=== PATIENT | female | born 1930 | race Caucasian/White ===

== ENCOUNTER 2017-05-26 15:36 | Inpatient (IN) | payer OTHER, MEDICARE ==
--- OUTSIDE RECORDS SUMMARY | 2017-05-26 15:38 | XMS REPORT | Clinical Summary ---
:1930 Author Organization [facility] Address [address] [place] [address] Care Team Providers Name Role Phone Romero Zhu MD Primary Care Provider Allergies Active Allergy Reactions Severity Noted Date Comments Morphine Shortness Of Breath High 12/29/2015 Penicillins 12/29/2015 Current Medications Prescription Sig. Disp. Refills Start Date End Date Status oxybutynin Take 5 mg by Active (DITROPAN) 5 MG mouth 3 (three) tablet times a day. multivitamin Take 1 tablet by Active (THERAGRAN) tablet mouth daily. alendronate Take 70 mg by Active (FOSAMAX) 70 MG mouth every 7 tablet days. Take in the morning with a full glass of water, on an empty stomach, and do not take anything else by mouth or lie down for the next 30 min. docusate sodium Take 200 mg by Active (COLACE) 100 MG mouth nightly. capsule gemfibrozil (LOPID) Take 1 tablet 180 tablet 3 01/26/2016 Active 600 MG (600 mg total) tabletIndications: by mouth 2 (two) Essential times a day hypertension before meals. simvastatin (ZOCOR) Take 1 tablet 90 tablet 3 01/26/2016 Active 20 MG (20 mg total) by tabletIndications: mouth daily. Essential hypertension magnesium oxide Take 400 mg by Active (MAG-OX) 400 mg mouth daily. tablet aspirin (ECOTRIN) 81 Take 81 mg by Active MG enteric coated mouth daily. tablet BIOTIN ORAL Take 5,000 mcg Active by mouth daily. CALCIUM CITRATE ORAL Take 600 mg by Active mouth 2 (two) times a day. lisinopril Take 10 mg by Active (PRINIVIL,ZESTRIL) mouth daily. 10 mg tablet amLODIPine (NORVASC) Take 1 tablet (5 90 tablet 3 01/26/2016 01/25/2017 5 mg mg total) by tabletIndications: mouth daily. Essential hypertension Active Problems Problem Noted Date SOB (shortness of breath) 12/29/2015 Coronary artery disease involving [place] heart with angina pectoris 12/29/2015 Essential hypertension 12/29/2015 Coronary arteriosclerosis in [place] artery 12/25/2015 Family History Medical History Relation Name Comments Pulmonary embolism Father Heart attack Mother Heart failure Mother Stroke Mother Diabetes Sister Stroke Sister Relation Name Status Comments Father Mother Sister Social History Tobacco Use Types Packs/Day Years Used Date Former Smoker 30 Quit: 03/16/1978 Smokeless Tobacco: Never Used Alcohol Use Drinks/Week oz/Week Comments No Sex Assigned at Date Recorded Not on file Last Filed Vital Signs Not on file Plan of Treatment Health Maintenance Due Date Last Done Comments ZOSTER VACCINE 1990 PNEUMOCOCCAL POLYSACCHARIDE VACCINE AGE 65 AND OVER 11/15/1995 PNEUMOCOCCAL-13 11/15/1995 INFLUENZA VACCINE 09/13/2017 Implants Implanted Type Area Piano Machine Operator Device Identifier Expiration Date Model / Serial / Lot Right Knee Left Hip Results Not on fileafter 05/25/2016 Insurance Payer Benefit Plan / Group Subscriber ID Type Phone Address MEDICARE MEDICARE PART A AND B xxxxxxxxxx Medicare [place], [place] AAR AARP SUPPLEMENT xxxxxxxxxxxx Commercial Home: [address] [place] [id number] [id number]
[2017-05-26 16:48] LABS: Absolute Monocytes 0.8 K/uL (0.1-1.3); Absolute Neutrophil 13.7 K/uL (1.8-8.0); Basophils % 0.4 % (0-1.3); Hematocrit 33.8 % (36.0-45.0); Lymphocytes % 6.5 % (15.3-44.8); MCH 28.6 pg (27.0-35.0); MCV 89.4 fL (80-100); MPV 9.8 fL (7.6-11.3); Monocytes % 4.9 % (3.3-12.3); RBC Red Blood Cell Count 3.78 M/uL (3.86-4.86)
[2017-05-26 17:04] LABS: Bicarbonate 25 mEq/L (21-31); Glucose Level 126 mg/dL (65-120); Lipase 23 U/L (22-51); Potassium 4.1 mEq/L (3.6-5.0); Sodium Level 139 mEq/L (135-145)
[2017-05-26 17:10] LABS: ALT/SGPT 13 IU/L (10-60); AST/SGOT 24 IU/L (10-42); Albumin 3.8 g/dL (3.2-5.5); Alkaline Phosphatase 40 IU/L (42-121); BUN Blood Urea Nitrogen 91 mg/dL (6-20); Bilirubin Direct < 0.1 mg/dL (0-0.2); Bilirubin Total 0.3 mg/dL (0.3-1.2); Protein, Total 6.5 g/dL (6.0-8.3)
--- NOTE | 2017-05-26 17:17 | ER ---
Nurse's Notes [facility] Name: Fanta Villatoro Age: 86 yrs Sex: Female : 1930 Arrival Date: 05/26/2017 Time: 15:40 Bed 5 Private MD: Diagnosis: Gastrointestinal hemorrhage, unspecified Presentation: 05/26 15:43 Presenting complaint: Patient states: black tarry stools since last night, denies la1 vomiting. Pt denies abd pain. Transition of care: patient was not received from another setting of care. Onset of symptoms was May 26, 2017. Care prior to arrival: None. 15:43 Method Of Arrival: Wheelchair la1 15:43 Acuity: ABDIFATAH 2 la1 Historical: - Allergies: 15:45 PENICILLINS; la1 15:45 Morphine; la1 - Home Meds: 18:29 lisinopril 10 mg Oral tab 1 tab once daily [Active]; Fosamax 70 mg Oral tab 1 tab once iw wkly [Active]; Ditropan Oral 5 mg twice a day [Active]; Celebrex 200 mg Oral cap 1 cap once daily [Active]; gemfibrozil 600 mg Oral tab 1 tab 2 times per day [Active]; Zocor 20 mg Oral tab 1 tab 2 times per day [Active]; aspirin 81 mg Oral TbEC 1 tab once daily [Active]; - PMHx: 15:45 Hypertension; High Cholesterol; la1 - PSHx: 18:29 total R knee replacement; cardiac stent; Appendectomy; Hysterectomy; Tonsillectomy; iw partial L hip; - Immunization history:: Adult Immunizations up to date. - Social history:: Smoking status: Patient/guardian denies using tobacco. Screenin:12 Abuse screen: Denies threats or abuse. Denies injuries from another. Nutritional jl7 screening: No deficits noted. Tuberculosis screening: No symptoms or risk factors identified. Fall Risk Fall in past 12 months (25 points). No secondary diagnosis (0 pts). IV access (20 points). Ambulatory Aid- None/Bed Rest/Nurse Assist (0 pts). Gait- Normal/Bed Rest/Wheelchair (0 pts) Mental Status- Oriented to own ability (0 pts). Total Jacobson Fall Scale indicates High Risk Score (45 or more points). Fall prevention measures have been instituted. Side Rails Up X 2 Placed Close to Nursing Station Frequent Obs/Assessments Occuring Family Present and informed to notify staff if the need to leave the bedside As available patient and family educated on Fall Prevention Program and Strategies. Assessment: 16:00 General: Appears in no apparent distress. uncomfortable, Behavior is calm, cooperative, jl7 appropriate for age. Pain: Denies pain. Neuro: Level of Consciousness is awake, alert, obeys commands, Oriented to person, place, time, situation, Moves all extremities. Cardiovascular: Patient's skin is warm and dry. Respiratory: Airway is patent Respiratory effort is even, unlabored, Respiratory pattern is regular, symmetrical. GI: Abdomen is round non-distended, Bowel sounds present X 4 quads. Abd is soft and non tender X 4 quads. Reports bloody stool, since last night. : No signs and/or symptoms were reported regarding the genitourinary system. EENT: No signs and/or symptoms were reported regarding the EENT system. Derm: Skin is pink, warm \T\ dry. Musculoskeletal: No signs and/or symptoms reported regarding the musculoskeletal system. 17:00 Reassessment: No changes from previously documented assessment. Patient and/or family jl7 updated on plan of care and expected duration. Pain level reassessed. Patient is alert, oriented x 3, equal unlabored respirations, skin warm/dry/pink. 17:35 Reassessment: Dr. Pinzon at bedside discussing plan of care. jl7 19:39 Reassessment: Patient appears in no apparent distress at this time. Patient denies pain lp1 at this time. Neuro: Level of Consciousness is awake, alert, obeys commands. Respiratory: Respiratory effort is even, unlabored. Derm: Skin is fragile, is thin, Skin is dry, Skin is pale. Vital Signs: 15:45 BP 117 / 51; Pulse 87; Resp 16; Temp 97.8(O); Pulse Ox 96% on R/A; Weight 64.41 kg; la1 16:12 BP 99 / 70; Pulse 81; Resp 16 S; Pulse Ox 97% on R/A; Pain 0/10; jl7 16:52 BP 142 / 74 Supine; Pulse 79; Resp 16; Pulse Ox 95% on R/A; dh3 16:54 BP 114 / 64 Sitting; Pulse 86; Resp 17; Pulse Ox 99% on R/A; dh3 16:56 BP 118 / 49 Standing; Pulse 100; Resp 19; Pulse Ox 100% ; dh3 17:54 BP 106 / 90; Pulse 73; Resp 16 S; Pulse Ox 97% on R/A; jl7 18:27 BP 130 / 65; Pulse 75; Resp 16 S; Pulse Ox 100% on R/A; jl7 19:39 BP 144 / 72; Pulse 82; Resp 18; Temp 97.9(O); Pulse Ox 95% on R/A; Pain 0/10; lp1 ED Course: 15:40 Patient arrived in ED. mr 15:44 Triage completed. la1 15:45 Arm band placed on left wrist. la1 15:48 Deacon Adams PA is PHCP. jr8 15:48 Phil Caputo MD is Attending Physician. jr8 15:49 Praful Laughlin RN is Primary Nurse. jl7 16:12 Patient has correct armband on for positive identification. Placed in gown. Bed in low jl7 position. Call light in reach. Side rails up X 1. Pulse ox on. NIBP on. Warm blanket given. 16:35 Initial lab(s) drawn, by co, sent to lab. Inserted saline lock: 20 gauge in right jl7 antecubital area, using aseptic technique. Blood collected. 16:40 Served as a table cut off saw operator during rectal exam. jl7 17:17 Chuy Pinzon DO is Hospitalizing Provider. jr8 19:40 Patient admitted, IV remains in place. lp1 Administered Medications: 17:51 Not Given (Physician Discretion): Flagyl 500 mg 100 ml IVPB at 200 ml/hr once over 30 jr8 mins 17:52 Not Given (Physician Discretion): Cipro 400 mg 200 ml IVPB once over 60 mins jr8 18:27 Drug: ProTONIX 8 mg/hr Route: IV; Rate: 25 ml/hr; Site: right antecubital; jl7 19:40 Follow up: IV Status: Infusion continued upon admission lp1 18:27 Drug: NS 0.9% 500 ml Route: IV; Rate: bolus; Site: right antecubital; jl7 19:00 Follow up: IV Status: Completed infusion jl7 Outcome: 17:17 Decision to Hospitalize by Provider. jr8 19:40 Condition: stable lp1 19:40 Instructed on the need for admit. 20:00 Admitted to Tele accompanied by tech, via stretcher, room 416, with chart, Report lp1 called to Rona Wakefield RN 20:10 Patient left the ED. lp1 Signatures: Jacqui Magaña Dunia Madrigal, RN RN iw Arleen Duarte RN RN lp1 Deacon Adams PA PA jr8 Mark Peraza RN RN la1 Praful Laughlin RN RN jl7 Monique Hurt [facility]
--- NOTE | 2017-05-26 17:18 | EDPHYS ---
Physician Documentation [facility] Name: Fanta Villatoro Age: 86 yrs Sex: Female : 1930 Arrival Date: 05/26/2017 Time: 15:40 Bed 5 Private MD: ED Physician Phil Caputo HPI: 05/26 16:30 This 86 yrs old Female presents to ER via Wheelchair with complaints of jr8 Bloody Stools. 16:30 Onset: The symptoms/episode began/occurred acutely, yesterday. Associated signs and jr8 symptoms: Pertinent positives: lightheadedness . Modifying factors: The patient symptoms are alleviated by nothing, the patient symptoms are aggravated by nothing. The patient has not experienced similar symptoms in the past. The patient has not recently seen a physician. history of ASA and Ibuprofen use daily . Historical: - Allergies: 15:45 PENICILLINS; la1 15:45 Morphine; la1 - Home Meds: 18:29 lisinopril 10 mg Oral tab 1 tab once daily [Active]; Fosamax 70 mg Oral tab 1 tab once iw wkly [Active]; Ditropan Oral 5 mg twice a day [Active]; Celebrex 200 mg Oral cap 1 cap once daily [Active]; gemfibrozil 600 mg Oral tab 1 tab 2 times per day [Active]; Zocor 20 mg Oral tab 1 tab 2 times per day [Active]; aspirin 81 mg Oral TbEC 1 tab once daily [Active]; - PMHx: 15:45 Hypertension; High Cholesterol; la1 - PSHx: 18:29 total R knee replacement; cardiac stent; Appendectomy; Hysterectomy; Tonsillectomy; iw partial L hip; - Immunization history:: Adult Immunizations up to date. - Social history:: Smoking status: Patient/guardian denies using tobacco. ROS: 16:30 Eyes: Negative for injury, pain, redness, and discharge, ENT: Negative for injury, jr8 pain, and discharge, Neck: Negative for injury, pain, and swelling, Cardiovascular: Negative for chest pain, palpitations, and edema, Respiratory: Negative for shortness of breath, cough, wheezing, and pleuritic chest pain, Abdomen/GI: Negative for abdominal pain, nausea, vomiting, diarrhea, and constipation, Back: Negative for injury and pain, MS/Extremity: Negative for injury and deformity, Skin: Negative for injury, rash, and discoloration, Neuro: Negative for headache, weakness, numbness, tingling, and seizure. Exam: 16:30 Eyes: Pupils equal round and reactive to light, extra-ocular motions intact. Lids and jr8 lashes normal. Conjunctiva and sclera are non-icteric and not injected. Cornea within normal limits. Periorbital areas with no swelling, redness, or edema. ENT: Nares patent. No nasal discharge, no septal abnormalities noted. Tympanic membranes are normal and external auditory canals are clear. Oropharynx with no redness, swelling, or masses, exudates, or evidence of obstruction, uvula midline. Mucous membranes moist. Neck: Trachea midline, no thyromegaly or masses palpated, and no cervical lymphadenopathy. Supple, full range of motion without nuchal rigidity, or vertebral point tenderness. No Meningismus. Cardiovascular: Regular rate and rhythm with a normal S1 and S2. No gallops, murmurs, or rubs. Normal PMI, no JVD. No pulse deficits. Respiratory: Lungs have equal breath sounds bilaterally, clear to auscultation and percussion. No rales, rhonchi or wheezes noted. No increased work of breathing, no retractions or nasal flaring. Abdomen/GI: Soft, non-tender, with normal bowel sounds. No distension or tympany. No guarding or rebound. No evidence of tenderness throughout. Back: No spinal tenderness. No costovertebral tenderness. Full range of motion. Skin: Warm, dry with normal turgor. Normal color with no rashes, no lesions, and no evidence of cellulitis. MS/ Extremity: Pulses equal, no cyanosis. Neurovascular intact. Full, normal range of motion. Neuro: Awake and alert, GCS 15, oriented to person, place, time, and situation. Cranial nerves II-XII grossly intact. Motor strength 5/5 in all extremities. Sensory grossly intact. Cerebellar exam normal. Normal gait. 17:15 Abdomen/GI: Rectal exam: rectal tone normal, Stool: guaiac positive, black, jr8 hemorrhoid(s), external, without bleeding, without inflammation, without thrombosis, without pain, mass, is not appreciated, swelling, is not appreciated, tenderness, is not appreciated, the exam is chaperoned by the nurse. Vital Signs: 15:45 BP 117 / 51; Pulse 87; Resp 16; Temp 97.8(O); Pulse Ox 96% on R/A; Weight 64.41 kg; la1 16:12 BP 99 / 70; Pulse 81; Resp 16 S; Pulse Ox 97% on R/A; Pain 0/10; jl7 16:52 BP 142 / 74 Supine; Pulse 79; Resp 16; Pulse Ox 95% on R/A; dh3 16:54 BP 114 / 64 Sitting; Pulse 86; Resp 17; Pulse Ox 99% on R/A; dh3 16:56 BP 118 / 49 Standing; Pulse 100; Resp 19; Pulse Ox 100% ; dh3 17:54 BP 106 / 90; Pulse 73; Resp 16 S; Pulse Ox 97% on R/A; jl7 18:27 BP 130 / 65; Pulse 75; Resp 16 S; Pulse Ox 100% on R/A; jl7 19:39 BP 144 / 72; Pulse 82; Resp 18; Temp 97.9(O); Pulse Ox 95% on R/A; Pain 0/10; lp1 MDM: 15:48 Patient medically screened. jr8 17:16 Data reviewed: vital signs, nurses notes, lab test result(s), radiologic studies, CT jr8 scan, and as a result, I will admit patient. Data interpreted: Pulse oximetry: on room air is 100 %. Interpretation: normal. Counseling: I had a detailed discussion with the patient and/or guardian regarding: the historical points, exam findings, and any diagnostic results supporting the discharge/admit diagnosis, lab results, radiology results, the need for further work-up and treatment in the hospital. Physician consultation: Chuy Pinzon DO was called at 17:17, was contacted at 17:17, regarding admission, to the medical/surgical unit. consult, patient's condition, and will see patient. 05/26 16:06 Order name: Basic Metabolic Panel; Complete Time: 17:14 8 05/26 16:06 Order name: CBC with Diff; Complete Time: 17:02 8 05/26 16:06 Order name: Creatinine for Radiology; Complete Time: 17:08 8 05/26 16:06 Order name: Hepatic Function; Complete Time: 17:14 05/26 16:06 Order name: Lipase; Complete Time: 17:14 8 05/26 16:06 Order name: TS; Complete Time: 17:29 jr8 05/26 16:06 Order name: IV Saline Lock; Complete Time: 16:43 jr8 05/26 17:09 Order name: CT Abd/Pelvis - Without Cont jr8 05/26 17:42 Order name: CONS Physician Consult [facility] 05/26 19:09 Order name: CT; Complete Time: 19:29 EDMA 05/26 16:06 Order name: Labs collected and sent; Complete Time: 16:43 jr8 05/26 16:31 Order name: Orthostatics; Complete Time: 16:43 jr8 Administered Medications: 17:51 Not Given (Physician Discretion): Flagyl 500 mg 100 ml IVPB at 200 ml/hr once over 30 jr8 mins 17:52 Not Given (Physician Discretion): Cipro 400 mg 200 ml IVPB once over 60 mins jr8 18:27 Drug: ProTONIX 8 mg/hr Route: IV; Rate: 25 ml/hr; Site: right antecubital; jl7 19:40 Follow up: IV Status: Infusion continued upon admission lp1 18:27 Drug: NS 0.9% 500 ml Route: IV; Rate: bolus; Site: right antecubital; jl7 19:00 Follow up: IV Status: Completed infusion jl7 Disposition: 05/26/17 17:17 Hospitalization ordered by Chuy Pinzon for Inpatient Admission. Preliminary diagnosis is Gastrointestinal hemorrhage, unspecified. - Bed requested for Telemetry/MedSurg (Inpatient). - Status is Inpatient Admission. lp1 - Condition is Stable. - Problem is new. - Symptoms have improved. UTI on Admission? No Addendum: 05/29/2017 07:49 Co-signature as Attending Physician, Phil Caputo MD I agree with the assessment and w a plan of care. Signatures: Dispatcher [employer] [facility] Dunia Madrigal, RN Arleen Ybarra RN RN lp1 Deacon Adams PA PA jr8 Mark Peraza RN RN la1 Praful Laughlin RN RN jl7 Phil Caputo MD MD oh [facility]
[2017-05-26] MEDS ORDERED: CIPROFLOXACIN 400mg IV 0 MG/0 ML BAG IV ONE (17:39)
[2017-05-26] MEDS ORDERED: METRONIDAZOLE 500mg IVPB 0 MG/0 ML BAG IV ONE (17:39)
[2017-05-26] MEDS ORDERED: ONDANSETRON 4 MG/2 ML VIAL IV PRN (17:54)
[2017-05-26] MEDS ORDERED: ACETAMINOPHEN 500 MG TAB PO PRN (17:54)
[2017-05-26] MEDS ORDERED: ACETAMINOPHEN 650MG/RECT SUPP PR PRN (17:54)
[2017-05-26] MEDS ORDERED: ALBUTEROL 2.5 MG/3 ML NEB SOL NEB PRN (17:54)
[2017-05-26] MEDS ORDERED: IPRATROPIUM BROM 0.5MG/2.5ML NEB PRN (17:54)
[2017-05-26] MEDS: NA CHLORIDE 0.9% 1,000 ML IV SCH ×2 (18:00→22:43)
[2017-05-26] MEDS ORDERED: PANTOPRAZOLE INJ 80 MG in NA CHLORIDE 0.9% 250 ML IV SCH (18:00)
--- NOTE | 2017-05-26 18:07 | P.HP ---
Certification for Inpatient Patient admitted to: Inpatient With expected LOS: >2 Midnights Patient will require the following post-hospital care: None Practitioner: I am a practitioner with admitting privileges, knowledge of patient current condition, hospital course, and medical plan of care. Services: Services provided to patient in accordance with Admission requirements found in Title 42 Section 412.3 of the Code of Federal Regulations Patient History Date of Service: 05/26/17 Primary Care Provider: Dr. Zhu (hospitalist covering weekend) Reason for admission: Black tarry stools History of Present Illness: 86-year-old female presented emergency room with black tarry stools. Patient reports melena over the last 2 days. Patient has been taking aspirin and ibuprofen for quite some time every night for a generalized pain and insomnia. The patient denies any significant nausea or vomiting. No of significant abdominal pain noted. Melena got worse today. She came to the emergency room for further evaluation. Patient reports that she has had a history of C diff colitis in the distant past. She also has had EGD and colonoscopy in the past. She has seen GI but not recently. She denies any fever, chills. No chest pain noted. She denies any significant shortness of breath. In the ER the patient was evaluated. Patient was orthostatics in the emergency room. She was given IV fluids. Initial lab work shows a white count of 15.5, hemoglobin 10.8. Sodium within normal range. BUN of 91, creatinine 1.3. GFR 40. CT scan of the abdomen is pending. Patient had guaiac positive stools. GI bleed was suspected. Patient not in any significant distress. I was asked to admit the patient as [facility] When I evaluated the patient in the ER, she did not appear in any respiratory distress. Blood pressure stable. Daughter was at bedside. Patient with history of hypertension, hyperlipidemia, history of C diff. She use to smoke in the distant past. She does not drink alcohol. Patient reports a history of acute renal failure in the past. Allergies Penicillins Allergy (Verified 11/17/14 10:34) UNK morphine Adverse Reaction (Verified 11/19/14 14:11) Nausea/Vomiting Home medications list reviewed: Yes Home Medications: Alendronate Sodium [Fosamax] 70 mg PO EVERY 7TH DAY 11/13/14 Lisinopril [Prinivil*] 20 mg PO BEDTIME 01/02/15 Aspirin [Downs Aspirin] 81 mg PO DAILY 02/21/15 Calcium Carbonate/Vitamin D3 [Calcium 600-Vit D3 800 Tablet] 1 tab PO BID Dicyclomine HCl [Bentyl] 20 mg PO TID 02/21/15 Gemfibrozil [Lopid*] 600 mg PO BID 02/21/15 Lactobacillus Combo No.13 [Probiotic Pearls Complete] 1 each PO DAILY 02/21/15 Magnesium Oxide [Magnesium] 250 mg PO BEDTIME 02/21/15 Megestrol [Megace*] 40 mg PO BID 02/21/15 Multivitamin [Multivitamins] 1 each PO DAILY 02/21/15 Naproxen [Naprosyn] 500 mg PO BID 02/21/15 Oxybutynin Chloride [Ditropan*] 5 mg PO BID 02/21/15 Pantoprazole Sodium [Protonix] 40 mg PO DAILY 02/21/15 Sennosides/Docusate Sodium [Stool Soft-Stimulant Lax Tab] 1 each PO BEDTIME 10/29 Simvastatin [Zocor*] 20 mg PO BEDTIME 02/21/15 Vitamin A 1 cap PO DAILY 02/21/15 - Past Medical/Surgical History Diabetic: No -: Neurogenic Bladder -: IBS-rectocele -: Hyperlipidemia -: HTN -: Osteoporosis -: Depression -: History of C difficile colitis -: CAD with cardiac stent -: Former tobacco use -: Multiple bladder lift surgeries -: Right ovary removal -: Hysterectomy -: Tonsillectomy -: Left hip repair -: Appendectomy -: Total knee replacement -: Cardiac stent Psychosocial/ Personal History: The patient is a . She has children. She lives by herself. - Family History Mother -: Heart disease, Hypertension, Diabetes, Stroke Notes: 2 sisters diabetic, brothers diabetic - Social History Smoking Status: Former smoker Alcohol use: No CD- Drugs: No Caffeine use: Yes Place of Residence: Home Review of Systems General: Weakness, As per HPI Eyes: Unremarkable ENT: Unremarkable Respiratory: Unremarkable Cardiovascular: Light Headedness, As per HPI Gastrointestinal: Diarrhea, Melena, As per HPI Genitourinary: Unremarkable Musculoskeletal: Unremarkable Integumentary: Unremarkable Neurological: Unremarkable Lymphatics: Unremarkable Physical Examination - Physical Exam General: Alert, In no apparent distress, Oriented x3, Cooperative HEENT: Atraumatic, Normocephalic, PERRLA, Other (Dry mucous membranes) Neck: Supple, No Thyromegaly Respiratory: Clear to auscultation bilaterally, Normal air movement Cardiovascular: Normal pulses, Regular rate/rhythm Gastrointestinal: Normal bowel sounds, Soft and benign, Non-distended, No ascites, No tenderness, No masses, No rebound, No guarding Musculoskeletal: No contractures, No erythema, No tenderness, No warmth Integumentary: No tenderness/swelling, No erythema, No warmth, No cyanosis Neurological: Normal speech, Normal strength at 5/5 x4 extr, Normal tone, Normal affect Lymphatics: No axilla or inguinal lymphadenopathy Other Physical/Emotional Findings: Patient had positive guaiac stool - Studies Laboratory Data (last 24 hrs) 05/26/17 16:35: Creatinine 1.30 H 05/26/17 16:35: WBC 15.5 H, Hgb 10.8 L, Hct 33.8 L, Plt Count 180 05/26/17 16:35: Sodium 139, Potassium 4.1, BUN 91 H, Creatinine 1.28 H, Glucose 126 H, Total Bilirubin 0.3, AST 24, ALT 13, Alkaline Phosphatase 40 L, Lipase 23 Assessment and Plan - Problems (Diagnosis) (1) Melena Current Visit: Yes Status: Acute Plan: Patient with melena over the last 2 days. Suspect upper GI bleed. Patient we started on IV Protonix. CT scan of the abdomen pending. Hemoglobin 10.8. Will monitor hemoglobin closely. Patient may require blood transfusion. GI consulted. GI was aware of the patient. Will keep the patient NPO as the patient will likely need upper GI evaluation. Will continue with IV fluids. Patient slightly orthostatics in the ER. She was given 1 L of fluid. Patient currently stable at this time. Patient with history of hypertension. Acute renal failure noted. This is likely from volume depletion. Will continue with IV fluids. Patient has been taking aspirin and ibuprofen daily for osteoarthritis. This will need to be discontinued. Patient will need to be counseled on no further use of all nonsteroidal anti-inflammatories. Her PCP is Dr. Zhu. He is out of town this weekend. The hospitalist will cover. (2) GI bleed Current Visit: Yes Status: Acute Plan: Continue with above plan of care. Will monitor hemoglobin closely. Patient on IV Protonix drip. GI consulted. Patient will likely need GI evaluation. Patient may require transfusion if hemoglobin continues to drop. Qualifiers: GI bleed type/associated pathology: unspecified gastrointestinal hemorrhage type Qualified Code(s): K92.2 - Gastrointestinal hemorrhage, unspecified (3) Acute renal failure Current Visit: Yes Status: Acute Plan: Likely from volume depletion. Will continue with IV fluids. Will monitor closely. Qualifiers: Acute renal failure type: unspecified Qualified Code(s): N17.9 - Acute kidney failure, unspecified (4) Hypertension Current Visit: Yes Status: Chronic Plan: Patient with history of hypertension. Will hold medications due to orthostatic changes. Will monitor this closely. Qualifiers: Hypertension type: essential hypertension Qualified Code(s): I10 - Essential (primary) hypertension (5) Hyperlipidemia Current Visit: Yes Status: Chronic Plan: We will hold medication Qualifiers: Hyperlipidemia type: unspecified Qualified Code(s): E78.5 - Hyperlipidemia , unspecified (6) Anemia Current Visit: No Status: Acute Plan: Continue with above plan of care. Qualifiers: Anemia type: other cause Other causes of anemia: acute posthemorrhagic Qualified Code(s): D62 - Acute posthemorrhagic anemia (7) Osteoarthritis Onset Date: 11/25/14 Current Visit: No Status: Chronic Plan: Patient has been using ibuprofen and aspirin daily. Patient will need to be counseled on no further use of nonsteroidal anti-inflammatories. Qualifiers: Osteoarthritis location: knee Discharge Plan: Home Plan to discharge in: Greater than 2 days - Advance Directives Does patient have a Living Will: No Does patient have a Durable POA for Healthcare: Yes - Code Status/Comfort Care Code Status Assessed: Yes (Patient is DNR. This was addressed in detail.) Time Spent Managing Pts Care (In Minutes): 55
[2017-05-26] MEDS ORDERED: NA CHLORIDE 0.9% 500 ML ONE (18:20)
--- NOTE | 2017-05-26 19:09 | RAD REPORT ---
EXAM DESCRIPTION: CT - Abdomen Pelvis Wo Contrast - 05/26/2017 6:57 pm CLINICAL HISTORY: Abdominal pain. COMPARISON: 03/24/2015 TECHNIQUE: CT imaging of the abdomen and pelvis was performed without contrast. Solid organ, bowel a nd vascular assessment is limited due to lack of IV and oral contrast. All CT scans are performed using dose optimization technique as appropriate and may include automated exposure control or mA/KV adjustment according to patient size. FINDINGS: The lower lung joyce are clear. Noncontrast assessment liver demonstrates small hypodense lesions in the left lobe, likely cysts and appearing unchanged.No aggressive liver lesion or intrahepatic biliary dilatation. The spleen, pancre as and right adrenal gland are normal. The left adrenal gland contains a 25 mm low-density mass francisco tible with an adenoma, benign in appearance. Several renal cysts are present. 2 mm nonobstructing lef t renal calculus. No hydronephrosis. No bowel obstruction, free air, free fluid or abscess. Thickening of the rectosigmoid colon is noted suggesting colitis. No pneumatosis coli is seen. The appendix is not identified as a discrete structure, however, no secondary findings of appendicit is are identified. Left total hip arthroplasty is present.Moderate lumbar degenerative changes. Aortoiliac atheroscleros is. IMPRESSION: Rectosigmoid colitis is suspected, mild in severity. A limited non-contrast examination was performed as detailed.
[2017-05-26 21:12] LABS: Hematocrit 28.3 % (36.0-45.0)
[2017-05-26 23:57] VITALS: BMI 24.1
[2017-05-27] MEDS: NA CHLORIDE 0.9% 1,000 ML IV SCH ×2 (04:00→06:02)
[2017-05-27] MEDS ORDERED: PANTOPRAZOLE INJ 80 MG in NA CHLORIDE 0.9% 250 ML IV SCH (05:00)
[2017-05-27 05:11] LABS: Absolute Lymphocytes (CBC) 2.3 K/uL (0.7-4.9); Absolute Monocytes 0.9 K/uL (0.1-1.3); Absolute Neutrophil 6.9 K/uL (1.8-8.0); Basophils % 0.3 % (0-1.3); Eosinophils % 0.1 % (0-4.4); Hematocrit 25.8 % (36.0-45.0); Lymphocytes % 22.5 % (15.3-44.8); MCH 29.3 pg (27.0-35.0); MCV 87.6 fL (80-100); RBC Red Blood Cell Count 2.94 M/uL (3.86-4.86)
[2017-05-27 05:36] LABS: Magnesium 1.7 mg/dL (1.8-2.5); Potassium 3.6 mEq/L (3.6-5.0)
[2017-05-27] MEDS ORDERED: KCL 20 MEQ/100 mL IVPB 20 MEQ/100 ML BAG IV SCH (06:30)
[2017-05-27] MEDS ORDERED: PNEUMOCOCCAL VACCINE 0.5 ML IMVAC ONE (08:00)
[2017-05-27] MEDS ORDERED: MAGNESIUM SULFATE 1 gm IVPB 1 GM/100 ML BAG IV ONE (09:00)
--- NOTE | 2017-05-27 11:02 | P.PN ---
Subjective Date of Service: 05/27/17 Primary Care Provider: Dr. Zhu (hospitalist covering weekend) Chief Complaint: Black tarry stools Pt seen and Examined at bedside. Chart reviewe. Case D/W GI. Pt is currently doing better. However did have a drop in H/H to 8.6 from 10.3 this AM. Currently is NPO and awaiting EGD this AM. No melonotic Stools. Review of Systems 10-point ROS is otherwise unremarkable Physical Examination - Vital Signs Temperature: 97.7 F Blood Pressure: 145/65 Pulse: 70 Respirations: 18 Pulse Ox (%): 99 - Physical Exam General: Alert, In no apparent distress, Oriented x3 HEENT: Atraumatic, PERRLA, EOMI Neck: Supple, JVD not distended Respiratory: Clear to auscultation bilaterally, Normal air movement Cardiovascular: Regular rate/rhythm, Normal S1 S2 Gastrointestinal: Normal bowel sounds, No tenderness Musculoskeletal: No tenderness Integumentary: No rashes Neurological: Normal speech, Normal tone, Normal affect Lymphatics: No axilla or inguinal lymphadenopathy Other Physical/Emotional Findings: Patient had positive guaiac stool - Studies Laboratory Data (last 24 hrs) 05/26/17 16:35: Creatinine 1.30 H 05/26/17 16:35: WBC 15.5 H, Hgb 10.8 L, Hct 33.8 L, Plt Count 180 05/26/17 16:35: Sodium 139, Potassium 4.1, BUN 91 H, Creatinine 1.28 H, Glucose 126 H, Total Bilirubin 0.3, AST 24, ALT 13, Alkaline Phosphatase 40 L, Lipase 23 Medications List Reviewed: Yes Assessment & Plan - Problems (Diagnosis) (1) GI bleed Current Visit: Yes Status: Acute Plan: Pt takes ASA and ibuprofen for pain. -H/H Trending Down -GI consulted. Appreciated Recsc -EGD scheduled for today -Will f/u -IV protonix. Qualifiers: GI bleed type/associated pathology: unspecified gastrointestinal hemorrhage type Qualified Code(s): K92.2 - Gastrointestinal hemorrhage, unspecified (2) Hyperlipidemia Current Visit: Yes Status: Chronic Qualifiers: Hyperlipidemia type: unspecified Qualified Code(s): E78.5 - Hyperlipidemia , unspecified (3) Hypertension Current Visit: Yes Status: Chronic Qualifiers: Hypertension type: essential hypertension Qualified Code(s): I10 - Essential (primary) hypertension Discharge Plan: Home Plan to discharge in: 48 Hours - Code Status/Comfort Care Code Status Assessed: Yes Critical Care: No
[2017-05-27 12:33] LABS: Hematocrit 29.5 % (36.0-45.0)
[2017-05-27] MEDS ORDERED: Ringers Lactate 1,000 ML IV ONE (14:24)
[2017-05-27] MEDS ORDERED: EPINEPHRINE/PF 1 MG/ML AMP ONE (14:24)
[2017-05-27] MEDS ORDERED: LIDOCAINE 1% MPF 5 ML VIAL ONE (14:54)
[2017-05-27] MEDS ORDERED: PROPOFOL 200 MG/20 ML VIAL IV ONE (14:54)
[2017-05-27 15:10] LABS: Urine Appearance CLOUDY; Urine Bilirubin NEGATIVE (NEG); Urine Blood NEGATIVE (NEG); Urine Color YELLOW; Urine Glucose NEGATIVE (NEG); Urine Protein NEGATIVE (NEG); Urine Specific Gravity 1.015 (1.005-1.030); Urine Urobilinogen 0.2 mg/dL (0.2-1.0); Urine pH 5.5 (5.0-7.0)
[2017-05-27 15:11] LABS: Urine Microscopic Reflex ORDER UMIC
[2017-05-27 15:27] LABS: Urine Bacteria LOADED /HPF (<20); Urine Culture Reflex Order REFLEXED; Urine RBC NONE SEEN /HPF (NONE SEEN)
--- NOTE | 2017-05-27 15:32 | P.SSS ---
Patient History Date of Service: 05/27/17 Primary Care Provider: Dr. Zhu (hospitalist covering weekend) Reason for admission: Black tarry stools History of Present Illness: 86-year-old female presented emergency room with black tarry stools. Patient reports melena over the last 2 days. Patient has been taking aspirin and ibuprofen for quite some time every night for a generalized pain and insomnia. The patient denies any significant nausea or vomiting. No of significant abdominal pain noted. Melena got worse today. She came to the emergency room for further evaluation. Patient reports that she has had a history of C diff colitis in the distant past. She also has had EGD and colonoscopy in the past. She has seen GI but not recently. She denies any fever, chills. No chest pain noted. She denies any significant shortness of breath. In the ER the patient was evaluated. Patient was orthostatics in the emergency room. She was given IV fluids. Initial lab work shows a white count of 15.5, hemoglobin 10.8. Sodium within normal range. BUN of 91, creatinine 1.3. GFR 40. CT scan of the abdomen is pending. Patient had guaiac positive stools. GI bleed was suspected. Patient not in any significant distress. I was asked to admit the patient as Dr. Zhu is that of [facility]. When I evaluated the patient in the ER, she did not appear in any respiratory distress. Blood pressure stable. Daughter was at bedside. Patient with history of hypertension, hyperlipidemia, history of C diff. She use to smoke in the distant past. She does not drink alcohol. Patient reports a history of acute renal failure in the past. Allergies Penicillins Allergy (Verified 11/17/14 10:34) UNK morphine Adverse Reaction (Verified 11/19/14 14:11) Nausea/Vomiting Home Medications: Alendronate Sodium [Fosamax] 70 mg PO EVERY 7TH DAY 11/13/14 Lisinopril [Prinivil*] 10 mg PO BID 01/02/15 Calcium Carbonate/Vitamin D3 [Calcium 600-Vit D3 800 Tablet] 1 tab PO BID Lactobacillus Combo No.13 [Probiotic Pearls Complete] 1 each PO DAILY 02/21/15 Magnesium Oxide [Magnesium] 500 mg PO BEDTIME 02/21/15 Multivitamin [Multivitamins] 1 each PO DAILY 02/21/15 Sennosides/Docusate Sodium [Stool Soft-Stimulant Lax Tab] 1 each PO BEDTIME 10/29 Simvastatin [Zocor*] 20 mg PO BEDTIME 02/21/15 Pantoprazole Sodium [Protonix] 40 mg PO BID #60 tablet. 05/27/17 Vit A/Vit C/Vit E/Zinc/Copper [Preservision Areds Softgel] 1 each PO BID - Past Medical/Surgical History Diabetic: No -: Neurogenic Bladder -: IBS-rectocele -: Hyperlipidemia -: HTN -: Osteoporosis -: Depression -: History of C difficile colitis -: CAD with cardiac stent -: Former tobacco use -: Multiple bladder lift surgeries -: Right ovary removal -: Hysterectomy -: Tonsillectomy -: Left hip repair -: Appendectomy -: Total knee replacement -: Cardiac stent Psychosocial/ Personal History: The patient is a . She has children. She lives by herself. - Family History Mother -: Heart disease, Hypertension, Diabetes, Stroke Notes: 2 sisters diabetic, brothers diabetic, parent htn and dm - Social History Smoking Status: Former smoker Alcohol use: No CD- Drugs: No Caffeine use: No Place of Residence: Home Review of Systems 10-point ROS is otherwise unremarkable Physical Examination - Vital Signs Temperature: 97.8 F Blood Pressure: 134/61 Pulse: 69 Respirations: 18 Pulse Ox (%): 99 - Physical Exam General: Alert, In no apparent distress, Oriented x3 HEENT: Atraumatic, PERRLA, Mucous membr. moist/pink, EOMI, Sclerae nonicteric Neck: Supple, 2+ carotid pulse no bruit, No LAD, Without JVD or thyroid abnormality Respiratory: Clear to auscultation bilaterally, Normal air movement Cardiovascular: Regular rate/rhythm, Normal S1 S2 Gastrointestinal: Normal bowel sounds, No tenderness Musculoskeletal: No tenderness Integumentary: No rashes Neurological: Normal gait, Normal speech, Normal strength at 5/5 x4 extr, Normal tone, Normal affect Lymphatics: No axilla or inguinal lymphadenopathy Other Physical/Emotional Findings: Patient had positive guaiac stool - Studies Laboratory Data (last 24 hrs) 05/26/17 16:35: Creatinine 1.30 H 05/26/17 16:35: WBC 15.5 H, Hgb 10.8 L, Hct 33.8 L, Plt Count 180 05/26/17 16:35: Sodium 139, Potassium 4.1, BUN 91 H, Creatinine 1.28 H, Glucose 126 H, Total Bilirubin 0.3, AST 24, ALT 13, Alkaline Phosphatase 40 L, Lipase 23 - Diagnosis (Problem(s)) (1) GI bleed Current Visit: Yes Status: Resolved Plan: Patient presented to the ED with complaints of having some lower GI bleeding. Was placed on IV Protonix and IV fluids here in the hospital. GI consulted. Patient had an EGD done today which was consistent with 2 small based ulcer in the gastric area with clean based. Patient was switched over to p.o. Protonix and her diet was advanced. Patient was then discharged home under stable condition was asked to hold her aspirin for 2 days and not take ibuprofen or any other NSAIDs. Patient demonstrated understanding and thus was discharged home under stable condition with p.o. Protonix b.i.d. and resume all her other medication as prescribed by her primary care provider. Patient will follow up with GI in 6 weeks for followup colonoscopy and EGD. Qualifiers: GI bleed type/associated pathology: unspecified gastrointestinal hemorrhage type Qualified Code(s): K92.2 - Gastrointestinal hemorrhage, unspecified (2) Hyperlipidemia Current Visit: Yes Status: Chronic Qualifiers: Hyperlipidemia type: unspecified Qualified Code(s): E78.5 - Hyperlipidemia , unspecified (3) Hypertension Current Visit: Yes Status: Chronic Qualifiers: Hypertension type: essential hypertension Qualified Code(s): I10 - Essential (primary) hypertension - Disposition Condition: GOOD Patient Discharge Instructions: Please f/u with Dr Novak in 1 to 2 week post discharge. -You will need to have a f/u EGD done in 6 weeks post discharge. You should resume taking your ASA after 2 days 05/30/17. You should stop taking ibuprofen or any other NSAID medication. New medication. Protonix 40mg BID Diet: Regular Activity: Ad noe
[2017-05-27 15:33] VITALS: O2SAT 99
[2017-05-27 16:00] VITALS: BP 133/57; TEMP 97.2
--- NOTE | 2017-05-27 18:48 | OP ---
Surgeon: Justin Kern MD Procedure Performed: Esophagogastroduodenoscopy. Performing Physician: Justin Kern M.D. Indication For Procedure: Upper GI bleed. Plan For Anesthesia: Monitored anesthesia care. Complexity: Average. Technique: After obtaining informed consent from the patient and explaining risks and complications which include, but are not limited to bleeding, infection, perforation, and anesthesia complication. The patient placed in the left lateral position and sedation was given. From then on, the scope was advanced to the mouth and carefully guided up till the second portion of the duodenum. After the co mpletion of examination, the scope and equipment were withdrawn and procedure terminated in a safe ma nner. Findings: Esophagus: No gross lesion was seen in the upper and mid esophagus. In the distal esopha tod a small hiatal hernia was seen. Stomach: Mild patchy erythema was seen in the body. Biopsies were taken. In the antrum 2 cratered ulcer from 0.5 mm to 1 cm were seen. These were, however, clean based, likely source of bleeding, bu t no high-risk stigmata. Biopsies were taken from the ulcer. Duodenum: The bulb and second portion appeared normal. Complications: None. Tolerance For Anesthesia: Excellent. Postoperative Diagnoses: Hiatal hernia, and cratered gastric ulcers but clean based, likely source o f bleeding. Plan: 1.Await pathology results. 2.Oral PPI twice a day. 3.Avoid NSAIDs. 4.Will need followup EGD in 6 weeks time to ensure healing. 5.The patient can be discharged later today if tolerates diet and follow up in our clinic. US/MODL Voice ID: [id number] Report ID: [id number]
== END 2017-05-27 17:22 | disposition home or self-care (01) | DRG 378 ==
LOC: ER 15:36 → ERHOLD 17:40 → 4TH 18:20
PROVIDERS: ADMIT Family Medicine; ATTEND Family Medicine
PROC: 0DB68ZX Excision of Stomach, Via Natural or Artificial Opening Endoscopic, Diagnostic (ICD-10-PCS; principal; 2017-05-27 15:00)
DX: K25.4 Chronic or unspecified gastric ulcer with hemorrhage (principal); N17.9 Acute kidney failure, unspecified; D62 Acute posthemorrhagic anemia; E78.5 Hyperlipidemia, unspecified; I10 Essential (primary) hypertension; M81.0 Age-related osteoporosis without current pathological fracture; M17.9 Osteoarthritis of knee, unspecified; K44.9 Diaphragmatic hernia without obstruction or gangrene; Z87.891 Personal history of nicotine dependence
CPT/HCPCS: 36415; 74176; 80048; 80076; 81003; 81015; 83690; 83735; 85014; 85018; 85025; 86850; 86900; 86901; 87077; 87086; 87088; 87186; 88305; 88312; 96365; 99285; C9113; J0171; J0744; J3475; J7030

== ENCOUNTER 2017-06-12 15:38 | Emergency (ER) | payer OTHER, MEDICARE ==
--- OUTSIDE RECORDS SUMMARY | 2017-06-12 15:40 | XMS REPORT | Clinical Summary ---
:1930 Author Organization [facility] Address [address] [place] [address] Care Team Providers Name Role Phone Romero [...] of breath) 12/29/2015 Coronary artery disease involving [place] heart with angina pectoris 12/29/2015 Essential hypertension 12/29/2015 Coronary arteriosclerosis in [place] artery 12/25/2015 Family History Medical History Relation [...] Health Maintenance Due Date Last Done Comments SHINGRIX VACCINE (#1) 1980 ZOSTER VACCINE 1990 PNEUMOCOCCAL POLYSACCHARIDE VACCINE AGE 65 AND OVER 11/15/1995 PNEUMOCOCCAL-13 11/15/1995 INFLUENZA VACCINE 09/13/2017 Implants Implanted Type Area Race Board Attendant Device Identifier Expiration Date Model / Serial / Lot Right Knee Left Hip Results Not on fileafter 06/11/2016 Insurance Payer Benefit Plan / Group Subscriber ID Type Phone Address MEDICARE MEDICARE PART A AND B xxxxxxxxxx Medicare [place], [place] AAR AARP SUPPLEMENT xxxxxxxxxxxx Commercial [phone] [address]
--- NOTE | 2017-06-12 17:48 | RAD REPORT ---
EXAM DESCRIPTION: CT - Head Brain Wo Cont - 06/12/2017 5:38 pm CLINICAL HISTORY: Dizziness COMPARISON: 2014 TECHNIQUE: Computed axial tomography of the head was obtained. IV contrast was not requested. All CT scans are performed using dose optimization technique as appropriate and may include automated exposure control or mA/KV adjustment according to patient size. FINDINGS: An intracranial bleed is not seen . The ventricles are normal in caliber. No extra-axial fluid collection is noted. MIld to moderate low-density areas within periventricular, deep and subcortical white matter likely represent ischemic changes secondary to small vessel disease . Fluid within the sinuses/ mastoids is not seen. IMPRESSION: No acute intracranial abnormality is seen. If patient's symptoms persist MRI of the bra in would be recommended.
[2017-06-12 17:55] LABS: Urine Blood NEGATIVE (NEG); Urine Glucose NEGATIVE (NEG); Urine Protein 1+ (NEG); Urine pH 5.5 (5.0-7.0)
[2017-06-12 17:57] LABS: Absolute Monocytes 0.5 K/uL (0.1-1.3); Absolute Neutrophil 2.7 K/uL (1.8-8.0); Basophils % 0.8 % (0-1.3); Eosinophils % 0.8 % (0-4.4); Hematocrit 29.5 % (36.0-45.0); Lymphocytes % 23.2 % (15.3-44.8); MCH 29.2 pg (27.0-35.0); MCV 89.1 fL (80-100); MPV 9.1 fL (7.6-11.3); Monocytes % 12.3 % (3.3-12.3); RBC Red Blood Cell Count 3.32 M/uL (3.86-4.86)
[2017-06-12 18:05] LABS: Protime INR 0.97
[2017-06-12] MEDS ORDERED: NA CHLORIDE 0.9% 1,000 ML ONE (18:09)
[2017-06-12 18:11] LABS: Bicarbonate 31 mEq/L (21-31); Glucose Level 96 mg/dL (65-120); Potassium 4.8 mEq/L (3.6-5.0); Sodium Level 142 mEq/L (135-145)
[2017-06-12 18:17] LABS: ALT/SGPT 12 IU/L (10-60); AST/SGOT 21 IU/L (10-42); Albumin 3.7 g/dL (3.2-5.5); Alkaline Phosphatase 56 IU/L (42-121); BUN Blood Urea Nitrogen 24 mg/dL (6-20); Bilirubin Direct < 0.1 mg/dL (0-0.2); Bilirubin Total 0.5 mg/dL (0.3-1.2); Creatine Phosphokinase 52 IU/L (22-269); Protein, Total 6.3 g/dL (6.0-8.3)
[2017-06-12 18:20] LABS: CKMB Creatine Kinase MB 1.7 ng/ml (0.3-4.0)
--- NOTE | 2017-06-12 18:37 | RAD REPORT ---
EXAM DESCRIPTION: Cristiana Single View06/12/2017 5:48 pm CLINICAL HISTORY: cough COMPARISON: November 2016 FINDINGS: The lungs appear clear of acute infiltrate. The heart is normal size. Right hemidiaphragm remains elevated IMPRESSION: No acute abnormalities displayed
--- NOTE | 2017-06-12 19:34 | RAD REPORT ---
EXAM DESCRIPTION: MRI - Brain Wo Cont - 06/12/2017 7:19 pm CLINICAL HISTORY: Syncope COMPARISON: 2008 TECHNIQUE: Axial, sagittal, and coronal magnetic images of the brain were obtained. Contrast was not requested FINDINGS: Mild to moderate signal is present within periventricular, deep and subcortical white tamiko er bilaterally. Diffusion-weighted/ADC mapping does not reveal evidence of acute infarction. The ventricles are normal caliber. An extra-axial fluid collection is not present The sinuses and mastoids are clear. IMPRESSION: Mild to moderate signal within periventricular, deep and subcortical white matter probab ly representing ischemic changes secondary to small vessel disease No acute intracranial abnormality is seen
--- NOTE | 2017-06-12 19:36 | RAD REPORT ---
EXAM DESCRIPTION: VASCarotid Artery Bilateral06/12/2017 7:01 pm CLINICAL HISTORY: Syncope COMPARISON: None FINDINGS: The velocity of the right internal carotid artery equals 187 cm/sec. The right ICA/CCA rat io 1.8 The velocity of the left internal carotid artery equals 143 cm/sec. The left ICA/CCA ratio 1.4 Mild plaque is present within the common carotid arteries. . The internal carotid arteries are tortuous. Mild plaque is present within the left internal carotid a rtery. Mild to moderate plaque is present within the right carotid artery The vertebral arteries demonstrate antegrade flow IMPRESSION: Mild to moderate plaque within the carotid arteries. Elevation of the internal carotid a rtery velocities probably secondary to the artery being tortuous. A significant stenosis is not susp ected
--- NOTE | 2017-06-12 19:52 | ER ---
Nurse's Notes [facility] Name: Fanta Villatoro Age: 86 yrs Sex: Female : 1930 Arrival Date: 06/12/2017 Time: 15:38 Bed 26 Private MD: Diagnosis: Dizziness and giddiness;Unspecified kidney failure;Anemia, unspecified Presentation: 06/12 16:04 Presenting complaint: Patient states: Intermittent dizziness since fall from standing 2 hb weeks ago. Pt reports she had an episode last night that woke her from her sleep and "it was very intense.". Transition of care: patient was not received from another setting of care. Onset of symptoms was May 28, 2017. Initial Sepsis Screen: Does the patient meet any 2 criteria? No. Patient's initial sepsis screen is negative. Does the patient have a suspected source of infection? No. Patient's initial sepsis screen is negative. Care prior to arrival: None. 16:04 Method Of Arrival: Ambulatory hb 16:04 Acuity: ABDIFATAH 3 hb Historical: - Allergies: 16:07 Morphine; hb 16:07 PENICILLINS; hb - Home Meds: 16:07 aspirin 81 mg Oral TbEC 1 tab once daily [Active]; Celebrex 200 mg Oral cap 1 cap once hb daily [Active]; Ditropan Oral 5 mg twice a day [Active]; Fosamax 70 mg Oral tab 1 tab once wkly [Active]; gemfibrozil 600 mg Oral tab 1 tab 2 times per day [Active]; lisinopril 10 mg Oral tab 1 tab once daily [Active]; Zocor 20 mg Oral tab 1 tab 2 times per day [Active]; - PMHx: 16:07 High Cholesterol; Hypertension; hb - PSHx: 16:07 total R knee replacement; cardiac stent; Appendectomy; Hysterectomy; Tonsillectomy; hb partial L hip; - Immunization history:: Adult Immunizations up to date. - Social history:: Smoking status: Patient/guardian denies using tobacco. - Family history:: not pertinent. Screenin:36 Abuse screen: Denies threats or abuse. Nutritional screening: No deficits noted. tl3 Tuberculosis screening: No symptoms or risk factors identified. Fall Risk Fall in past 12 months (25 points). Assessment: 17:36 General: Appears in no apparent distress. comfortable, slender, well groomed, well tl3 developed, well nourished, Behavior is calm, cooperative, appropriate for age. Pain: Complains of pain in lateral aspect of left thigh. Neuro: Level of Consciousness is awake, alert, obeys commands, Oriented to person, place, time, situation, Appropriate for age. Cardiovascular: Heart tones S1 S2 present. Respiratory: Airway is patent Trachea midline Respiratory effort is even, unlabored, Respiratory pattern is regular, symmetrical, Breath sounds are clear bilaterally. GI: No signs and/or symptoms were reported involving the gastrointestinal system. GI: Reports pt reports that stools have been normal and brown. : No signs and/or symptoms were reported regarding the genitourinary system. EENT: No signs and/or symptoms were reported regarding the EENT system. Derm: No signs and/or symptoms reported regarding the dermatologic system. Musculoskeletal: No signs and/or symptoms reported regarding the musculoskeletal system. 18:45 Reassessment: No changes from previously documented assessment. Patient and/or family tl3 updated on plan of care and expected duration. Pain level reassessed. Patient is alert, oriented x 3, equal unlabored respirations, skin warm/dry/pink. 19:50 Reassessment: No changes from previously documented assessment. Patient and/or family tl3 updated on plan of care and expected duration. Pain level reassessed. Patient is alert, oriented x 3, equal unlabored respirations, skin warm/dry/pink. daughter at bedside. 19:50 Reassessment: No changes from previously documented assessment. Patient and/or family tl3 updated on plan of care and expected duration. Pain level reassessed. Patient is alert, oriented x 3, equal unlabored respirations, skin warm/dry/pink. 21:35 Reassessment: No changes from previously documented assessment. Patient and/or family tl3 updated on plan of care and expected duration. Pain level reassessed. Patient is alert, oriented x 3, equal unlabored respirations, skin warm/dry/pink. Vital Signs: 16:02 BP 120 / 59; Pulse 68; Resp 18; Temp 98.2(TE); Pulse Ox 97% on R/A; Pain 3/10; hb 18:04 BP 135 / 91; Pulse 71; Resp 16; Pulse Ox 100% ; tl3 18:38 BP 140 / 63 Supine; Pulse 68; Resp 18; Pulse Ox 98% ; tl3 18:42 BP 151 / 71 Sitting; Pulse 68; Resp 18; Pulse Ox 98% on R/A; tl3 18:42 BP 145 / 65; Pulse 72; Resp 18; Pulse Ox 99% on R/A; tl3 21:35 BP 138 / 94; Pulse 70; Resp 16; Pulse Ox 98% on R/A; tl3 ED Course: 15:38 Patient arrived in ED. as 16:06 Triage completed. hb 16:07 Arm band placed on left wrist. hb 16:53 Tico Christiansen MD is Attending Physician. belinda 17:04 Moraima Baca, RN is Primary Nurse. tl3 17:31 EKG done, by data reduction technician. reviewed by Tico Christiansen MD. at1 17:36 Patient has correct armband on for positive identification. Bed in low position. Call tl3 light in reach. Side rails up X 1. 17:36 No provider procedures requiring assistance completed. Inserted saline lock: 22 gauge tl3 in right forearm, using aseptic technique. 17:36 Inserted saline lock: 22 gauge in left antecubital area, using aseptic technique. tl3 17:38 CT completed. Patient tolerated procedure well. Patient moved to CT via stretcher. nv Patient moved back from CT. 17:38 CT Head Brain wo Cont In Process Unspecified. EDMS 17:39 Initial lab(s) drawn, by me. tl3 17:45 X-ray completed. Portable x-ray completed in exam room. Patient tolerated procedure kc2 well. 17:46 XRAY Chest (1 view) In Process Unspecified. EDMS 17:59 desk attendant on. Pulse ox on. NIBP on. Door closed. Lights dimmed. Warm blanket tl3 given. 18:59 Patient moved to MRI via wheelchair. ka 19:01 US Carotid Artery Bilateral In Process Unspecified. EDMS 19:15 MRI completed. Patient tolerated well. Patient moved back from MRI. ka 19:15 Brain Wo Cont In Process Unspecified. EDMS 19:51 Romero Zhu MD is Referral Physician. belinda 21:37 IV discontinued, intact, bleeding controlled, No redness/swelling at site. Pressure tl3 dressing applied. 21:37 IV discontinued, intact, bleeding controlled, No redness/swelling at site. Pressure tl3 dressing applied. Administered Medications: 18:08 Drug: NS 0.9% 1000 ml Route: IV; Rate: 125 ml/hr; Site: left forearm; Delivery: Primary tl3 tubing; 21:38 Follow up: IV Status: IV converted to saline lock; IV Intake: 500ml tl3 Intake: 21:38 IV: 500ml; Total: 500ml. tl3 Outcome: 19:51 Discharge ordered by MD. trevino 21:37 Discharged to home ambulatory. tl3 21:37 Condition: stable 21:37 Discharge instructions given to patient, family, Instructed on discharge instructions, follow up and referral plans. medication usage, Demonstrated understanding of instructions, follow-up care, medications, Prescriptions given X 1. 21:38 Patient left the ED. tl3 Signatures: Dispatcher [employer] EDMS Tico Christiansen MD MD cha Martinez, Amelia as gonzales, Amanda, quad stayer EKG Tat1 Ayla Dougherty Heather, RN RN Kacy Mitchell2 Kenneth Gross Tammy, RN RN tl3
--- NOTE | 2017-06-12 19:52 | EDPHYS ---
Physician Documentation [facility] Name: Fanta Villatoro Age: 86 yrs Sex: Female : 1930 Arrival Date: 06/12/2017 Time: 15:38 Bed 26 Private MD: CARISSA Physician Tico Christiansen HPI: 06/12 17:14 This 86 yrs old Female presents to ER via Ambulatory with complaints of belinda Dizziness. 17:14 The patient presents with dizziness, feeling faint. Onset: The symptoms/episode belinda began/occurred last night. Context: occurred at home. Modifying factors: The symptoms are alleviated by nothing, the symptoms are aggravated by nothing. Associated signs and symptoms: The patient has no apparent associated signs or symptoms. Severity of symptoms: At their worst the symptoms were mild in the emergency department the symptoms have resolved and did so earlier today. The patient has not experienced similar symptoms in the past. Historical: - Allergies: 16:07 Morphine; hb 16:07 PENICILLINS; hb - Home Meds: 16:07 aspirin 81 mg Oral TbEC 1 tab once daily [Active]; Celebrex 200 mg Oral cap 1 cap once hb daily [Active]; Ditropan Oral 5 mg twice a day [Active]; Fosamax 70 mg Oral tab 1 tab once wkly [Active]; gemfibrozil 600 mg Oral tab 1 tab 2 times per day [Active]; lisinopril 10 mg Oral tab 1 tab once daily [Active]; Zocor 20 mg Oral tab 1 tab 2 times per day [Active]; - PMHx: 16:07 High Cholesterol; Hypertension; hb - PSHx: 16:07 total R knee replacement; cardiac stent; Appendectomy; Hysterectomy; Tonsillectomy; hb partial L hip; - Immunization history:: Adult Immunizations up to date. - Social history:: Smoking status: Patient/guardian denies using tobacco. - Family history:: not pertinent. ROS: 17:14 Constitutional: Negative for fever, chills, and weight loss, Eyes: Negative for injury, belinda pain, redness, and discharge, ENT: Negative for injury, pain, and discharge, Neck: Negative for injury, pain, and swelling, Cardiovascular: Negative for chest pain, palpitations, and edema, Respiratory: Negative for shortness of breath, cough, wheezing, and pleuritic chest pain, Abdomen/GI: Negative for abdominal pain, nausea, vomiting, diarrhea, and constipation, Back: Negative for injury and pain, : Negative for injury, bleeding, discharge, and swelling, MS/Extremity: Negative for injury and deformity, Skin: Negative for injury, rash, and discoloration, Neuro: Negative for headache, weakness, numbness, tingling, and seizure, Psych: Negative for depression, anxiety, suicide ideation, homicidal ideation, and hallucinations, Allergy/Immunology: Negative for hives, rash, and allergies, Endocrine: Negative for neck swelling, polydipsia, polyuria, polyphagia, and marked weight changes, Hematologic/Lymphatic: Negative for swollen nodes, abnormal bleeding, and unusual bruising. 17:14 Abdomen/GI: Negative for black/tarry stool, rectal pain, rectal bleeding. Exam: 17:14 Constitutional: This is a well developed, well nourished patient who is awake, alert, belinda and in no acute distress. Head/Face: Normocephalic, atraumatic. Eyes: Pupils equal round and reactive to light, extra-ocular motions intact. Lids and lashes normal. Conjunctiva and sclera are non-icteric and not injected. Cornea within normal limits. Periorbital areas with no swelling, redness, or edema. ENT: Nares patent. No nasal discharge, no septal abnormalities noted. Tympanic membranes are normal and external auditory canals are clear. Oropharynx with no redness, swelling, or masses, exudates, or evidence of obstruction, uvula midline. Mucous membranes moist. Neck: Trachea midline, no thyromegaly or masses palpated, and no cervical lymphadenopathy. Supple, full range of motion without nuchal rigidity, or vertebral point tenderness. No Meningismus. Chest/axilla: Normal chest wall appearance and motion. Nontender with no deformity. No lesions are appreciated. Cardiovascular: Regular rate and rhythm with a normal S1 and S2. No gallops, murmurs, or rubs. Normal PMI, no JVD. No pulse deficits. Respiratory: Lungs have equal breath sounds bilaterally, clear to auscultation and percussion. No rales, rhonchi or wheezes noted. No increased work of breathing, no retractions or nasal flaring. Abdomen/GI: Soft, non-tender, with normal bowel sounds. No distension or tympany. No guarding or rebound. No evidence of tenderness throughout. Back: No spinal tenderness. No costovertebral tenderness. Full range of motion. Female : Normal external genitalia. Skin: Warm, dry with normal turgor. Normal color with no rashes, no lesions, and no evidence of cellulitis. MS/ Extremity: Pulses equal, no cyanosis. Neurovascular intact. Full, normal range of motion. Neuro: Awake and alert, GCS 15, oriented to person, place, time, and situation. Cranial nerves II-XII grossly intact. Motor strength 5/5 in all extremities. Sensory grossly intact. Cerebellar exam normal. Normal gait. Psych: Awake, alert, with orientation to person, place and time. Behavior, mood, and affect are within normal limits. 17:14 Abdomen/GI: Rectal exam: is unremarkable, rectal tone poor, Stool: normal, hemorrhoid(s), are not appreciated, mass, is not appreciated, swelling, is not appreciated, tenderness, is not appreciated. Vital Signs: 16:02 BP 120 / 59; Pulse 68; Resp 18; Temp 98.2(TE); Pulse Ox 97% on R/A; Pain 3/10; hb 18:04 BP 135 / 91; Pulse 71; Resp 16; Pulse Ox 100% ; tl3 18:38 BP 140 / 63 Supine; Pulse 68; Resp 18; Pulse Ox 98% ; tl3 18:42 BP 151 / 71 Sitting; Pulse 68; Resp 18; Pulse Ox 98% on R/A; tl3 18:42 BP 145 / 65; Pulse 72; Resp 18; Pulse Ox 99% on R/A; tl3 21:35 BP 138 / 94; Pulse 70; Resp 16; Pulse Ox 98% on R/A; tl3 MDM: 16:53 Patient medically screened. [facility] 17:16 Data reviewed: vital signs, nurses notes, lab test result(s), EKG, radiologic studies, [facility] CT scan, plain films. 06/12 17:12 Order name: Basic Metabolic Panel; Complete Time: 18:23 [facility] 06/12 17:12 Order name: BNP; Complete Time: 19:51 [facility] 06/12 17:12 Order name: CBC with Diff; Complete Time: 18:14 [facility] 06/12 17:12 Order name: Ckmb; Complete Time: 18:23 [facility] 06/12 17:12 Order name: CPK; Complete Time: 18:23 belinda 06/12 17:12 Order name: LFT's; Complete Time: 18:23 belinda 06/12 17:12 Order name: Magnesium; Complete Time: 18:23 [facility] 06/12 17:12 Order name: PT-INR; Complete Time: 18:14 belinda 06/12 17:12 Order name: Ptt, Activated; Complete Time: 18:14 [facility] 06/12 17:12 Order name: Troponin (emerg Dept Use Only); Complete Time: 18:23 [facility] 06/12 17:12 Order name: XRAY Chest (1 view); Complete Time: 19:51 belinda 06/12 17:12 Order name: Urine Culture 06/12 17:12 Order name: Type And Screen; Complete Time: 19:51 [facility] 06/12 17:52 Order name: Urine Dipstick--Ancillary (enter results); Complete Time: 18:14 06/12 17:12 Order name: EKG; Complete Time: 17:13 [facility] 06/12 17:12 Order name: Cardiac monitoring; Complete Time: 18:07 [facility] 06/12 17:12 Order name: EKG - Nurse/Tech; Complete Time: 18:07 [facility] 06/12 17:12 Order name: IV Saline Lock; Complete Time: 18:07 [facility] 06/12 17:12 Order name: Labs collected and sent; Complete Time: 18:07 [facility] 06/12 17:12 Order name: O2 Per Protocol; Complete Time: 18:07 belinda 06/12 17:12 Order name: O2 Sat Monitoring; Complete Time: 18:07 [facility] 06/12 17:12 Order name: Urine Dipstick-Ancillary (obtain specimen); Complete Time: 18:07 [facility] 06/12 17:12 Order name: CT Head Brain wo Cont; Complete Time: 18:14 [facility] 06/12 17:12 Order name: US Carotid Artery Bilateral; Complete Time: 19:51 [facility] 06/12 17:12 Order name: Orthostatics; Complete Time: 21:39 [facility] 06/12 19:00 Order name: Brain Wo Cont; Complete Time: 19:51 EDMS Administered Medications: 18:08 Drug: NS 0.9% 1000 ml Route: IV; Rate: 125 ml/hr; Site: left forearm; Delivery: Primary tl3 tubing; 21:38 Follow up: IV Status: IV converted to saline lock; IV Intake: 500ml tl3 Disposition: 06/12/17 19:51 Discharged to Home. Impression: Dizziness and giddiness, Unspecified kidney failure, Anemia, unspecified. - Condition is Stable. - Discharge Instructions: Anemia, Nonspecific, Dizziness, Aspirin and Your Heart, Kidney Failure, [id number], Dizziness, [id number]. - Prescriptions for Meclizine 25 mg Oral Tablet - take 0.5 tablet by ORAL route every 8 hours As needed; 30 tablet. - Medication Reconciliation Form, Thank You Letter, Antibiotic Education, Prescription Opioid Use form. - Follow up: Romero Zhu; When: 1 - 2 days; Reason: Recheck today's complaints, Continuance of care, Re-evaluation by your physician. - Problem is new. - Symptoms have improved. Signatures: Dispatcher [employer] Tico Sutherland MD MD cha Baxter, Heather, RN RN Moraima Baca RN RN tl3 Corrections: (The following items were deleted from the chart) 19:00 18:18 MR STROKE PROTOCOL+MRI.RAD.BRZ ordered. CARISSACT THIAGO
--- NOTE | 2017-06-12 21:24 | EKG ---
Test Date: 2017-06-12 Test Time: 17:22:52 Biological Plant Operator: FRANCISCO MEASUREMENT RESULTS: Intervals: Rate: 61 SD: 182 QRSD: 92 QT: 402 QTc: 404 [place]: P: 83 SD: 182 QRS: -20 T: 80 INTERPRETIVE STATEMENTS: Normal sinus rhythm Septal infarct, age undetermined Abnormal ECG Compared to ECG 02/20/2015 20:59:59 No significant changes Electronically Signed On 06-12-17 21:24:03 CDT by Alfa Gerber
[2017-06-12 21:41] VITALS: TEMP 98.2
[2017-06-12 21:46] VITALS: BP 138/94; O2SAT 98
== END 2017-06-12 21:38 | disposition home or self-care (01) ==
LOC: ER 15:38
DX: D64.9 Anemia, unspecified (principal); N19 Unspecified kidney failure; I10 Essential (primary) hypertension; E78.00 Pure hypercholesterolemia, unspecified; Z88.5 Allergy status to narcotic agent; Z88.0 Allergy status to penicillin; Z79.82 Long term (current) use of aspirin; Z95.818 Presence of other cardiac implants and grafts
CPT/HCPCS: 36415; 70450; 70551; 71045; 80048; 80076; 81003; 82550; 82553; 83735; 83880; 84484; 85025; 85610; 85730; 86850; 86900; 86901; 87077; 87086; 87088; 87186; 93005; 93880; 96360; 96361; 99285; J7030

== ENCOUNTER 2020-04-24 15:09 | Inpatient (IN) | payer OTHER, MEDICARE ==
--- NOTE | 2020-04-24 16:20 | RAD REPORT ---
EXAM DESCRIPTION: CT - Head C Spine Mpr Wo Con - 04/24/2020 4:02 pm CLINICAL HISTORY: Syncope. Head and neck injury status post fall. Head and neck pain COMPARISON: 2019 TECHNIQUE: Computed axial tomography of the head and cervical spine was obtained. Sagittal and coronal reconstruction was performed. All CT scans are performed using dose optimization technique as appropriate and may include automated exposure control or mA/KV adjustment according to patient size. FINDINGS: An intracranial bleed is not seen. The ventricles are normal in caliber. An extra-axial fl uid collection is not noted. Mild low-density areas within periventricular, subcortical white matter likely ischemic changes secondary to small vessel disease. A cervical fracture is not visualized. No dislocation is noted. Mild anterior subluxation C3 on C4 an d C4 on C5. No adjacent soft tissue swelling seen. Spondylosis involves cervical spine IMPRESSION: No acute intracranial abnormality is seen. A cervical fracture is not visualized. If the patient continues to have symptoms to suggest intracra nial /spinal cord/ligamentous pathology then MRI would be recommended
--- NOTE | 2020-04-24 16:26 | RAD REPORT ---
EXAM DESCRIPTION: CT - Facial Bones W/ Mpr - 04/24/2020 4:02 pm CLINICAL HISTORY: Facial injury status post fall with facial pain COMPARISON: None TECHNIQUE: Computed axial tomography of the face was obtained. Coronal and sagittal reconstruction w as performed. All CT scans are performed using dose optimization technique as appropriate and may include automated exposure control or mA/KV adjustment according to patient size. FINDINGS: Nondisplaced left orbital floor fracture. Comminuted mildly depressed fracture anterior wall left maxillary sinus. Additional comminuted [id number] disc breasts fracture inferior aspect of anterior wall lef t maxillary sinus. Comminuted mildly displaced fracture lateral wall left maxillary sinus. Blood is present within the left maxillary sinus. A TMJ dislocation is not noted. The globes are intact. Fluid within the sinuses is not seen. IMPRESSION: Left orbital floor and left maxillary sinus fractures as described above
[2020-04-24] MEDS ORDERED: LIDOCAINE 1% MPF 5 ML VIAL ONE (16:38)
[2020-04-24 16:56] LABS: Absolute Lymphocytes (CBC) 1.3 K/uL (0.7-4.9); Basophils % 0.7 % (0-1.3); Hematocrit 42.2 % (36.0-45.0); Lymphocytes % 18.3 % (15.3-44.8); MPV 9.4 fL (7.6-11.3); RBC Red Blood Cell Count 4.83 M/uL (3.86-4.86)
[2020-04-24 17:04] LABS: Protime INR 0.91
[2020-04-24 17:20] LABS: ALT/SGPT 21 U/L (12-78); AST/SGOT 19 U/L (15-37); Alkaline Phosphatase 67 U/L (45-117); BUN Blood Urea Nitrogen 29 mg/dL (7-18); Bicarbonate 29 mmol/L (21-32); Bilirubin Direct 0.1 mg/dL (0-0.2); Bilirubin Total 0.4 mg/dL (0.2-1.0); CKMB Creatine Kinase MB 2.5 ng/mL (0.3-3.6); Creatine Phosphokinase 78 U/L (26-192); Glucose Level 103 mg/dL (74-106); Lipase 204 U/L (73-393); Magnesium 2.1 mg/dL (1.8-2.4); Potassium 4.2 mmol/L (3.5-5.1); Protein, Total 7.3 g/dL (6.4-8.2); Sodium Level 142 mmol/L (136-145); Troponin (Emerg Dept Use Only) < 0.02 ng/mL (0.0-0.045)
--- NOTE | 2020-04-24 18:07 | EDPHYS ---
Physician Documentation [facility] Name: Fanta Villatoro Age: 89 yrs Sex: Female : 1930 Arrival Date: 04/24/2020 Time: 15:17 Bed 8 Private MD: ED Physician Parish Philippe HPI: 04/24 15:51 This 89 yrs old Female presents to ER via EMS with complaints of FALL SYNCOPE.tw4 15:51 The patient or guardian reports a laceration, 2 cm(s), pain, swelling, tenderness. The tw4 complaints affect the left cheek and left eye. Context of injury: The problem was sustained at a correction or assisted living facility. Onset: The symptoms/episode began/occurred just prior to arrival, this morning. Severity of symptoms: At their worst the symptoms were moderate, in the emergency department the symptoms are unchanged. Historical: - Allergies: 15:26 Morphine; bw 15:26 PENICILLINS; bw - Home Meds: 15:26 lisinopril 10 mg Oral tab 1 tab once daily [Active]; aspirin 81 mg Oral TbEC 1 tab once bw daily [Active]; 20:39 ICaps AREDS oral oral daily [Active]; amlodipine 5 mg tab 1 tab once daily [Active]; sf simvastatin 20 mg Oral tab 1 tab once daily [Active]; magnesium 250 mg oral tab daily [Active]; calcium carbonate 600 mg (1,500 mg) Oral tab [Active]; donepezil 10 mg oral TbDL 1 tab once daily [Active]; sertraline 25 mg oral tab 1 tab once daily [Active]; Fosamax 70 mg Oral tab 1 tab once wkly [Active]; - PMHx: 15:26 High Cholesterol; Hypertension; bw - Immunization history:: Adult Immunizations up to date. - Social history:: Smoking status: Patient denies any tobacco usage or history of. ROS: 15:51 Constitutional: Negative for fever, chills, and weight loss, Eyes: Negative for injury, tw4 pain, redness, and discharge, Cardiovascular: Negative for chest pain, palpitations, and edema, Respiratory: Negative for shortness of breath, cough, wheezing, and pleuritic chest pain, Abdomen/GI: Negative for abdominal pain, nausea, vomiting, diarrhea, and constipation, MS/Extremity: Negative for injury and deformity, Skin: Negative for injury, rash, and discoloration, Neuro: Negative for headache, weakness, numbness, tingling, and seizure. Exam: 15:51 Constitutional: This is a well developed, well nourished patient who is awake, alert, tw4 and in no acute distress. Chest/axilla: Normal chest wall appearance and motion. Nontender with no deformity. No lesions are appreciated. Cardiovascular: Regular rate and rhythm with a normal S1 and S2. No gallops, murmurs, or rubs. Normal PMI, no JVD. No pulse deficits. Respiratory: Lungs have equal breath sounds bilaterally, clear to auscultation and percussion. No rales, rhonchi or wheezes noted. No increased work of breathing, no retractions or nasal flaring. 15:51 Back: No spinal tenderness. No costovertebral tenderness. Full range of motion. Skin: Warm, dry with normal turgor. Normal color with no rashes, no lesions, and no evidence of cellulitis. MS/ Extremity: Pulses equal, no cyanosis. Neurovascular intact. Full, normal range of motion. Neuro: Awake and alert, GCS 15, oriented to person, place, time, and situation. Cranial nerves II-XII grossly intact. Motor strength 5/5 in all extremities. Sensory grossly intact. Cerebellar exam normal. Normal gait. 15:51 Head/face: Noted is contusion, that is deep, of the left eye, hematoma. Vital Signs: 15:17 BP 172 / 59; Pulse 64; Resp 16; Temp 98.2; Pulse Ox 96% on R/A; Pain 6/10; bw 17:30 BP 170 / 84; Pulse 91; Resp 18; Pulse Ox 94% on R/A; bw 18:32 BP 159 / 67; Pulse 95; Resp 20; Pulse Ox 94% on R/A; Pain 4/10; bw 19:00 BP 188 / 78; Pulse 68; Resp 16; Pulse Ox 96% ; sf 19:30 BP 183 / 69; Pulse 66; Resp 16; Pulse Ox 95% ; sf 20:00 BP 190 / 65; Pulse 69; Resp 16; Pulse Ox 96% ; sf [place] Coma Score: 15:51 Eye Response: spontaneous(4). Verbal Response: oriented(5). Motor Response: obeys tw4 commands(6). Total: 15. 15:51 Eye Response: spontaneous(4). Verbal Response: oriented(5). Motor Response: obeys tw4 commands(6). Total: 15. Laceration: 18:55 Wound Repair of 2cm ( 0.8in ) subcutaneous laceration to left supraorbital ridge. tw4 Distal neuro/vascular/tendon intact. Anesthesia: Local anesthetic administered with 3 mls of 1% lidocaine. Wound prep: Moderate cleansing with betadine. Skin closed with 4 4-0 Prolene using simple sutures and sterile technique. Dressed with bandaid. Patient tolerated well. MDM: 15:51 Differential diagnosis: Contusion of. Data reviewed: vital signs, nurses notes. tw4 17:59 Data interpreted: radiation monitor: rhythm is normal sinus rhythm, ventricular tw4 tachycardia, Pulse oximetry: Interpretation:. Counseling: I had a detailed discussion with the patient and/or guardian regarding: the historical points, exam findings, and any diagnostic results supporting the discharge/admit diagnosis, lab results, the need for further work-up and treatment in the hospital. ED course: Pt had nonsustained run of ventricular tachycardia at approximately 1636. D/W dr Arguello at 1750. Will give magnesium 2gm and amiodarone and drip per Dr Arguello. 18:07 Patient medically screened. tw4 18:54 Test interpretation: by ED physician or midlevel provider: plain radiologic studies. tw4 Physician consultation: Mario Cole was called at 18:00, was contacted at 18:00, regarding admission, to the ICU, patient's condition, and will see patient in ED, would like consultation with Dr. Dr Arguello. 04/24 15:34 Order name: Basic Metabolic Panel; Complete Time: 17:30 tw4 04/24 17:30 Interpretation: Normal except: BUN 29; GFR 48. 04/24 15:34 Order name: CBC with Diff; Complete Time: 17:30 tw04/24 17:30 Interpretation: Within normal limits. 04/24 15:34 Order name: Ckmb; Complete Time: 17:30 tw4 04/24 17:30 Interpretation: Within normal limits: CKMB 2.5. 04/24 15:34 Order name: CPK; Complete Time: 17:30 04/24 17:30 Interpretation: Within normal limits: CPK 78. tw4 04/24 15:34 Order name: Hepatic Function; Complete Time: 17:30 tw4 04/24 15:34 Order name: Lipase; Complete Time: 17:30 4 04/24 15:34 Order name: Magnesium; Complete Time: 17:30 4 04/24 15:34 Order name: Protime (+inr); Complete Time: 17:30 4 04/24 15:34 Order name: Ptt, Activated; Complete Time: 17:30 4 04/24 15:34 Order name: Troponin (emerg Dept Use Only); Complete Time: 17:30 4 04/24 19:31 Order name: COVID-19 : Document "Date of Symptom Onset" if Symptomatic. [facility] 04/24 20:39 Order name: CORONAVIRUS [facility] 04/24 21:20 Order name: SARS-COV-2 RT PCR [facility] 04/24 22:37 Order name: Glucose, Ancillary Testing [facility] 04/24 15:34 Order name: CT Head C Spine; Complete Time: 17:30 tw4 04/24 15:34 Order name: EKG; Complete Time: 15:35 tw4 04/24 15:43 Order name: CT Facial Bones W/O Con; Complete Time: 17:30 tw4 04/25 02:14 Order name: Urinalysis [facility] 04/25 02:23 Order name: Urine Microscopic Only [facility] 04/25 05:53 Order name: CBC with Automated Diff [facility] 04/25 06:08 Order name: Comprehensive Metabolic Panel [facility] 04/25 06:08 Order name: Troponin I [facility] 04/25 08:13 Order name: Glucose, Ancillary Testing [facility] 04/25 11:56 Order name: Glucose, Ancillary Testing [facility] 04/25 17:10 Order name: Glucose, Ancillary Testing [facility] 04/25 20:54 Order name: Glucose, Ancillary Testing [facility] 04/24 15:34 Order name: Cardiac monitoring; Complete Time: 15:42 4 04/24 15:34 Order name: EKG - Nurse/Tech; Complete Time: 15:43 4 04/24 15:34 Order name: IV Saline Lock; Complete Time: 16:31 4 04/24 15:34 Order name: Labs collected and sent; Complete Time: 16:31 4 04/24 15:34 Order name: NPO; Complete Time: 18:16 tw4 04/24 15:34 Order name: O2 Per Protocol; Complete Time: 18:16 tw4 04/24 15:34 Order name: O2 Sat Monitoring; Complete Time: 18:16 tw4 04/24 15:34 Order name: Urine Dipstick-Ancillary (obtain specimen); Complete Time: 18:16 tw4 04/24 19:03 Order name: CONS Physician Consult [facility] 04/24 19:44 Order name: Ledesma; Complete Time: 21:00 ej EC:25 Rhythm is regular. Left axis deviation noted. AR interval is normal. QRS interval is tw4 normal. QT interval is normal. No Q waves. T waves are Normal. No ST changes noted. Clinical impression: NSR w/ Non-specific ST/T Changes. Interpreted by me. Reviewed by me. Administered Medications: 18:52 Drug: Magnesium Sulfate 2 grams Route: IVPB; Infused Over: 2 hrs; Site: left bw antecubital; 20:09 Follow up: IV Status: Completed infusion; IV Intake: 100ml sf 19:23 Drug: amiodarone 150 mg {Note: by aleyda MOON.} Route: IVP; Site: left antecubital; sf 20:00 Follow up: Response: No adverse reaction sf 19:24 Drug: amiodarone 900 mg, D5W 500 ml {Note: by aleyda MOON.} Route: IVPB; Rate: 1 mg/min; sf Site: right antecubital; 21:00 Follow up: IV Status: Infusion continued upon admission sf 20:50 Drug: Tylenol 650 mg Route: PO; sf Disposition: 04/24/20 18:07 Hospitalization ordered by Mario Cole for Inpatient Admission. Preliminary diagnosis are Syncope and collapse, Ventricular tachycardia, Concussion with loss of consciousness of 30 minutes or less, Laceration without foreign body of other part of head. - Bed requested for Telemetry/MedSurg (Inpatient). - Status is Inpatient Admission. oe - Condition is Stable. - Problem is new. - Symptoms have improved. Critical care time excluding procedures: 18:54 Critical care time: Bedside Care: 30 minutes, Consultation: 10 minutes, Family tw4 Intervention: 5 minutes. Total time: 45 minutes Signatures: Dispatcher [employer] Blanca Salcedo RN RN dw Esha Greenberg RN RN bb Errol Wilson Terrence, MD MD tw4 Joseph Linder, RN RN Russ Tsai PA PA ej Webb, Bethany, RN RN bw Corrections: (The following items were deleted from the chart) 18:20 18:07 Hospitalization Ordered by Shannan Albarado MD for Inpatient Admission. Preliminary tw4 diagnosis is Syncope and collapse; Ventricular tachycardia. Bed requested for Intensive Care Unit. Status is Inpatient Admission. Condition is Stable. Problem is new. Symptoms have improved. tw4 18:55 18:20 04/24/2020 18:07 Hospitalization Ordered by Mario Cole for Inpatient tw4 Admission. Preliminary diagnosis is Syncope and collapse; Ventricular tachycardia. Bed requested for Intensive Care Unit. Status is Inpatient Admission. Condition is Stable. Problem is new. Symptoms have improved. tw4 19:23 18:55 04/24/2020 18:07 Hospitalization Ordered by Mario Cole for Inpatient dw Admission. Preliminary diagnosis is Syncope and collapse; Ventricular tachycardia; Concussion with loss of consciousness of 30 minutes or less; Laceration without foreign body of other part of head. Bed requested for Intensive Care Unit. Status is Inpatient Admission. Condition is Stable. Problem is new. Symptoms have improved. tw4 04/25 21:19 04/24 19:23 04/24/2020 18:07 Hospitalization Ordered by Mario Cole for Inpatient bb Admission. Preliminary diagnosis is Syncope and collapse; Ventricular tachycardia; Concussion with loss of consciousness of 30 minutes or less; Laceration without foreign body of other part of head. Bed requested for [facility] ER HOLD. Status is Inpatient Admission. Condition is Stable. Problem is new. Symptoms have improved. 04/25 22:43 21:19 04/24/2020 18:07 Hospitalization Ordered by Mario Cole for Inpatient oe Admission. Preliminary diagnosis is Syncope and collapse; Ventricular tachycardia; Concussion with loss of consciousness of 30 minutes or less; Laceration without foreign body of other part of head. Bed requested for Telemetry/MedSurg (Inpatient). Status is Inpatient Admission. Condition is Stable. Problem is new. Symptoms have improved. bb
--- NOTE | 2020-04-24 18:07 | ER ---
Nurse's Notes [facility] Name: Fanta Villatoro Age: 89 yrs Sex: Female : 1930 Arrival Date: 04/24/2020 Time: 15:17 Bed 8 Private MD: Diagnosis: Syncope and collapse;Ventricular tachycardia;Concussion with loss of consciousness of 30 minutes or less;Laceration without foreign body of other part of head Presentation: 04/24 15:17 Chief complaint: EMS states: From [place]. Fall, hit left side of head. Lac noted bw to left eybrow. Brusing and swelling noted to left side of cheek and left side of upper lip. EMS reports pt c/o left hip pain en route. Pt also repeating herself en route. No one sided weakness or neuro deficits noted. Coronavirus screen: Client denies travel out of the [place] in the last 14 days. At this time, the client does not indicate any symptoms associated with coronavirus-19. Ebola Screen: No symptoms or risks identified at this time. Initial Sepsis Screen: Does the patient meet any 2 criteria? No. Patient's initial sepsis screen is negative. Does the patient have a suspected source of infection? No. Patient's initial sepsis screen is negative. Risk Assessment: Do you want to hurt yourself or someone else? Patient reports no desire to harm self or others. Onset of symptoms was April 24, 2020. 15:17 Method Of Arrival: EMS: [facility] 15:17 Acuity: ABDIFATAH 2 bw Triage Assessment: 15:26 General: Appears in no apparent distress. uncomfortable, Behavior is calm, cooperative, bw appropriate for age. Pain: Complains of pain in left cheek, left eye, mouth and left jew Pain currently is 6 out of 10 on a pain scale. Neuro: pt repeating herself, but can remember when prompted. . Cardiovascular: pt hypertensive on arrival. . Respiratory: No deficits noted. GI: No deficits noted. : No deficits noted. Musculoskeletal: Swelling present in left cheek, left eye and mouth Reports pain in left cheek, left eye and mouth. Injury Description: Head injury Laceration sustained to left eye and mouth. Historical: - Allergies: 15:26 Morphine; bw 15:26 PENICILLINS; bw - Home Meds: 15:26 lisinopril 10 mg Oral tab 1 tab once daily [Active]; aspirin 81 mg Oral TbEC 1 tab once bw daily [Active]; 20:39 ICaps AREDS oral oral daily [Active]; amlodipine 5 mg tab 1 tab once daily [Active]; sf simvastatin 20 mg Oral tab 1 tab once daily [Active]; magnesium 250 mg oral tab daily [Active]; calcium carbonate 600 mg (1,500 mg) Oral tab [Active]; donepezil 10 mg oral TbDL 1 tab once daily [Active]; sertraline 25 mg oral tab 1 tab once daily [Active]; Fosamax 70 mg Oral tab 1 tab once wkly [Active]; - PMHx: 15:26 High Cholesterol; Hypertension; bw - Immunization history:: Adult Immunizations up to date. - Social history:: Smoking status: Patient denies any tobacco usage or history of. Screenin:33 Abuse screen: Denies threats or abuse. Nutritional screening: No deficits noted. bw Tuberculosis screening: No symptoms or risk factors identified. Fall Risk Fall in past 12 months (25 points). No secondary diagnosis (0 pts). No IV (0 pts). Ambulatory Aid- None/Bed Rest/Nurse Assist (0 pts). Gait- Weak (10 pts.). Mental Status- Overestimates/Forgets Limitations (15 pts.). Total Jacobson Fall Scale indicates High Risk Score (45 or more points). Side Rails Up X 2 Placed Close to Nursing Station. Assessment: 15:32 Reassessment: See triage assessment. bw 16:30 Reassessment: Patient appears in no apparent distress at this time. No changes from bw previously documented assessment. Patient and/or family updated on plan of care and expected duration. Pain level reassessed. Patient is alert, oriented x 3, equal unlabored respirations, skin warm/dry/pink. 17:30 Reassessment: No changes from previously documented assessment. Patient and/or family bw updated on plan of care and expected duration. Pain level reassessed. 18:30 Reassessment: Decision to admit. New IV placed. Pt vss, breathing is even and bw unlabored. Will continue to monitor. Vital Signs: 15:17 BP 172 / 59; Pulse 64; Resp 16; Temp 98.2; Pulse Ox 96% on R/A; Pain 6/10; bw 17:30 BP 170 / 84; Pulse 91; Resp 18; Pulse Ox 94% on R/A; bw 18:32 BP 159 / 67; Pulse 95; Resp 20; Pulse Ox 94% on R/A; Pain 4/10; bw 19:00 BP 188 / 78; Pulse 68; Resp 16; Pulse Ox 96% ; sf 19:30 BP 183 / 69; Pulse 66; Resp 16; Pulse Ox 95% ; sf 20:00 BP 190 / 65; Pulse 69; Resp 16; Pulse Ox 96% ; sf [place] Coma Score: 15:51 Eye Response: spontaneous(4). Verbal Response: oriented(5). Motor Response: obeys tw4 commands(6). Total: 15. 15:51 Eye Response: spontaneous(4). Verbal Response: oriented(5). Motor Response: obeys tw4 commands(6). Total: 15. ED Course: 15:17 Patient arrived in ED. bw 15:23 Parish Philippe MD is Attending Physician. tw4 15:24 Triage completed. bw 15:31 Arm band placed on right wrist. bw 15:33 Patient has correct armband on for positive identification. Bed in low position. Call light in reach. Side rails up X2. bus driver/monitor on. Pulse ox on. NIBP on. 15:33 No provider procedures requiring assistance completed. bw 15:34 Aleyda Monet, RN is Primary Nurse. bw 15:42 Placed in gown. Warm blanket given. bus driver/monitor on. Pulse ox on. NIBP on. mh5 15:44 EKG done, by ED staff, reviewed by Parish Philippe MD. 5 16:02 CT Head C Spine In Process Unspecified. EDMS 16:02 CT Facial Bones W/O Con In Process Unspecified. EDMS 16:30 Basic Metabolic Panel Sent. mh5 16:30 CBC with Diff Sent. mh5 16:30 Ckmb Sent. mh5 16:30 CPK Sent. 5 16:30 Hepatic Function Sent. 5 16:30 Lipase Sent. 5 16:31 Magnesium Sent. 5 16:31 Protime (+inr) Sent. 5 16:31 Ptt, Activated Sent. mh5 16:32 Initial lab(s) drawn, by ca, sent to lab. Inserted saline lock: 22 gauge in right mh5 forearm, using aseptic technique. Blood collected. 18:06 Shannan Albarado MD is Hospitalizing Provider. tw4 18:20 Hospitalizing Provider role handed off by Shannan Albarado MD tw4 18:20 Mario Cole is Hospitalizing Provider. tw4 18:27 Inserted saline lock: 20 gauge in left antecubital area, using aseptic technique. mt 19:14 Primary Nurse role handed off by Aleyda Monet RN mw2 19:23 Joseph Linder RN is Primary Nurse. sf 20:00 IV is reddened, is swollen, with fluids infusing freely, without good blood return, sf (Left AC 20 GA). 20:24 IV discontinued, intact, bleeding controlled, Pressure dressing applied, (20 GA left sf AC, ice pack applied). 20:41 COVID-19 : Document "Date of Symptom Onset" if Symptomatic. Sent. sf 20:42 CORONAVIRUS Sent. sf 20:59 Report given to RED Suarez. sf 04/25 19:07 Primary Nurse role handed off by Joseph Linder RN mw2 Administered Medications: 04/24 18:52 Drug: Magnesium Sulfate 2 grams Route: IVPB; Infused Over: 2 hrs; Site: left bw antecubital; 20:09 Follow up: IV Status: Completed infusion; IV Intake: 100ml sf 19:23 Drug: amiodarone 150 mg {Note: by aleyda FOX} Route: IVP; Site: left antecubital; sf 20:00 Follow up: Response: No adverse reaction sf 19:24 Drug: amiodarone 900 mg, D5W 500 ml {Note: by aleyda FOX} Route: IVPB; Rate: 1 mg/min; sf Site: right antecubital; 21:00 Follow up: IV Status: Infusion continued upon admission sf 20:50 Drug: Tylenol 650 mg Route: PO; sf Intake: 20:09 IV: 100ml; Total: 100ml. sf Outcome: 18:07 Decision to Hospitalize by Provider. tw4 21:01 Admitted to ER Hold. Please see [facility] for further documentation. sf 21:01 Condition: stable 21:01 Instructed on the need for admit. 04/25 22:43 Patient left the ED. oe Signatures: Dispatcher [employer] EDErrol Gonzales, Jacqui 5 Rory, Parish Guy mt, MD MD tw4 [place], Isaac 2 Joseph Linder RN RN sf Monet, RED Carrero RN
[2020-04-24] MEDS ORDERED: AMIODARONE HCL 900 MG in Dextrose 5%-Water 482 ML IV SCH (19:00)
--- NOTE | 2020-04-24 19:27 | P.HP ---
Certification for Inpatient Patient admitted to: Observation With expected LOS: <2 Midnights Patient will require the following post-hospital care: None Practitioner: I am a practitioner with admitting privileges, knowledge of patient current condition, hospital course, and medical plan of care. Services: Services provided to patient in accordance with Admission requirements found in Title 42 Section 412.3 of the Code of Federal Regulations <Russ Cummins - Last Filed: 04/25/20 02:53> Patient History Date of Service: 04/25/20 Primary Care Provider: Dr. Zhu Reason for admission: syncope, vtach History of Present Illness: Ms. Villatoro is an 89 yo female with HTN, HLD, cardiac stent, osteoporosis, dementia, and anxiety here today for syncopal episode at assisted and nonsustained episode of vtach. She was found on the floor. She does not remember any events before the syncopal event and only remembers coming to the hospital. She denies nausea, palpitations, vision changes, fatigue, chest pain, and incontinence before the event. Here on monitor, nonsustained episode of vtach recorded. Cardiology notified. She has a 2cm laceration above left eye, stitched in ER. GCS 15. CT Head negative. CT face with left orbital floor and maxillary sinus fracture. BUN 29. GFR 48. - Past Medical/Surgical History Diabetic: No -: Neurogenic Bladder -: IBS-rectocele -: Hyperlipidemia -: HTN -: Osteoporosis -: Depression -: History of C difficile colitis -: CAD with cardiac stent -: Former tobacco use -: dementia -: Multiple bladder lift surgeries -: Right ovary removal -: Hysterectomy -: Tonsillectomy -: Left hip repair -: Appendectomy -: Total knee replacement -: Cardiac stent Psychosocial/ Personal History: The patient is a . She has children. She lives by herself. - Family History Mother -: Heart disease, Hypertension, Diabetes, Stroke Notes: 2 sisters diabetic, brothers diabetic, parent htn and dm - Social History Smoking Status: Former smoker Alcohol use: No CD- Drugs: No Caffeine use: No Place of Residence: Retirement ([facility]) <Russ Cummins - Last Filed: 04/25/20 02:53> Date of Service: 04/25/20 <koby quiñones - Last Filed: 04/25/20 19:07> Allergies Penicillins Allergy (Verified 04/24/20 22:42) UNK morphine Adverse Reaction (Verified 04/24/20 22:42) Nausea/Vomiting Home Medications: Alendronate [Fosamax*] 1 tab PO SEECOM 04/24/20 Amlodipine [Norvasc*] 1 tab PO DAILY 04/24/20 Aspirin 1 tab PO DAILY 04/24/20 Calcium Carbonate [Calcium] 600 mg PO DAILY 6PM 04/24/20 Donepezil [Aricept*] 10 mg PO DAILY 6PM 04/24/20 Lisinopril [Zestril] 1 tab PO DAILY 6PM 04/24/20 Magnesium Oxide [Magnesium] 1 tab PO DAILY 6PM 04/24/20 Sertraline [Zoloft*] 25 mg PO DAILY 6PM 04/24/20 Simvastatin 1 tab PO DAILY 04/24/20 Review of Systems General: Unremarkable Eyes: Unremarkable (2cm laceration above left eye) ENT: Unremarkable Respiratory: Unremarkable Cardiovascular: Unremarkable Gastrointestinal: Unremarkable Genitourinary: Incontinence Musculoskeletal: Unremarkable Integumentary: Unremarkable Neurological: Unremarkable Lymphatics: Unremarkable <Russ Cummins S - Last Filed: 04/25/20 02:53> Physical Examination - Vital Signs Temperature: 98.2 F Blood Pressure: 172/59 Pulse: 64 Respirations: 16 Pulse Ox (%): 96 - Physical Exam General: Alert, In no apparent distress, Oriented x3, Cooperative HEENT: Normocephalic, PERRLA, Mucous membr. moist/pink, EOMI, Sclerae nonicteric Neck: Supple, 2+ carotid pulse no bruit, JVD not distended, No Thyromegaly, No LAD Respiratory: Clear to auscultation bilaterally, Normal air movement Cardiovascular: No edema, Normal pulses, Regular rate/rhythm, No gallops, No rubs, No murmurs Capillary refill: <2 Seconds Gastrointestinal: Normal bowel sounds, Soft and benign, Non-distended, No ascites, No tenderness, No masses, No rebound, No guarding Musculoskeletal: No clubbing, No contractures, No erythema, No warmth, Swelling, Tenderness Integumentary: No rashes, No breakdown, No significant lesion, No erythema, No warmth, No cyanosis, Tenderness/swelling, Other (repaired 2cm laceration above left eye) Neurological: Normal speech, Normal strength at 5/5 x4 extr, Normal tone, Sensation intact, Cranial nerves 3-12 intact, Normal affect Lymphatics: No axilla or inguinal lymphadenopathy - Studies Laboratory Data (last 24 hrs) 04/24/20 16:25: PT 10.5, INR 0.91, APTT 28.2 04/24/20 16:25: WBC 6.80, Hgb 13.6, Hct 42.2, Plt Count 190 04/24/20 16:25: Sodium 142, Potassium 4.2, BUN 29 H, Creatinine 1.07, Glucose 103, Magnesium 2.1, Total Bilirubin 0.4, AST 19, ALT 21, Alkaline Phosphatase 67, Lipase 204 <Russ Cummins - Last Filed: 04/25/20 02:53> Assessment and Plan - Problems (Diagnosis) (1) Ventricular tachycardia Current Visit: Yes Status: Acute Plan: cardiology consulted. magnesium given. will continue with amiodarone drip. on telemetry. glucose q6hr. (2) Syncope and collapse Current Visit: Yes Status: Acute Plan: pain control with tylenol. fall precautions. see above. (3) Dementia Current Visit: Yes Status: Chronic Plan: will hold donepezil until further workup Qualifiers: Dementia type: unspecified type Dementia behavioral disturbance: without behavioral disturbance Qualified Code(s): F03.90 - Unspecified dementia without behavioral disturbance (4) Anxiety Current Visit: Yes Status: Chronic Plan: will hold sertraline. stable, continue to monitor. (5) Osteoporosis Current Visit: Yes Status: Chronic Plan: stable. continue to monitor Qualifiers: Osteoporosis type: age-related Presence of current pathological fracture: unspecified Qualified Code(s): M81.0 - Age-related osteoporosis without current pathological fracture (6) Neurogenic bladder Current Visit: Yes Status: Chronic Plan: mendes catheter with dc protocol (7) Hyperlipidemia Current Visit: No Status: Chronic Plan: stable. continue to monitor. Qualifiers: Hyperlipidemia type: unspecified Qualified Code(s): E78.5 - Hyperlipidemia, unspecified (8) Hypertension Current Visit: No Status: Chronic Plan: stable. will reconcile home medications. Qualifiers: Hypertension type: essential hypertension Qualified Code(s): I10 - Essential (primary) hypertension Discharge Plan: Retirement Plan to discharge in: 24 Hours - Advance Directives Does patient have a Living Will: Yes Does patient have a Durable POA for Healthcare: Yes - Code Status/Comfort Care Code Status Assessed: Yes (DNR, DNI) Critical Care: Yes Time Spent Managing Pts Care (In Minutes): 70 <Russ Cummins - Last Filed: 04/25/20 02:53> Physician Review: Patient Assessed, Agree with Above Assessment and Plan Physician Review Additional Text: Syncopal episode. Non sustained V-tach. Plan: Cardiac monitoring Cardiology consult. Obtain echo. <koby quiñones - Last Filed: 04/25/20 19:07>
[2020-04-24] MEDS ORDERED: ACETAMINOPHEN 325 MG TABLET ONE (21:03)
[2020-04-24] MEDS ORDERED: ONDANSETRON 4 MG/2 ML VIAL IV PRN (21:56)
[2020-04-24] MEDS ORDERED: lisinopriL 10 MG TAB PO SCH (21:56)
[2020-04-24 22:05] VITALS: BMI 27.4
[2020-04-24] MEDS ORDERED: lisinopriL 10 MG TAB ONE (22:42)
[2020-04-25] MEDS: ACETAMINOPHEN 500 MG TAB PO PRN
[2020-04-25] MEDS ORDERED: ACETAMINOPHEN 500 MG TAB ONE (00:25)
[2020-04-25 02:08] LABS: Urine Appearance CLOUDY; Urine Bilirubin NEGATIVE (NEG); Urine Blood 1+ (NEG); Urine Color YELLOW; Urine Glucose NEGATIVE (NEG); Urine Protein TRACE (NEG); Urine Specific Gravity 1.015 (1.005-1.030); Urine Urobilinogen 0.2 mg/dL (0.2-1.0); Urine pH 6.5 (5.0-7.0)
[2020-04-25 02:14] LABS: Urine Microscopic Reflex ORDER UMIC
[2020-04-25 02:23] LABS: Urine Amorphous Sediment 1+ /HPF (NONE SEEN); Urine Bacteria LOADED /HPF (<20); Urine Mucus 2+ /HPF (NONE SEEN)
[2020-04-25 05:37] LABS: Absolute Lymphocytes (CBC) 1.7 K/uL (0.7-4.9); Basophils % 0.8 % (0-1.3); Hematocrit 40.8 % (36.0-45.0); Lymphocytes % 22.7 % (15.3-44.8); RBC Red Blood Cell Count 4.73 M/uL (3.86-4.86)
[2020-04-25 06:07] LABS: ALT/SGPT 19 U/L (12-78); AST/SGOT 22 U/L (15-37); Albumin 3.7 g/dL (3.4-5.0); Alkaline Phosphatase 62 U/L (45-117); BUN Blood Urea Nitrogen 22 mg/dL (7-18); Bicarbonate 27 mmol/L (21-32); Bilirubin Total 0.8 mg/dL (0.2-1.0); Glucose Level 102 mg/dL (74-106); Protein, Total 6.7 g/dL (6.4-8.2); Sodium Level 143 mmol/L (136-145); Troponin I < 0.02 ng/mL (0.0-0.045)
--- NOTE | 2020-04-25 08:30 | EKG ---
Test Date: 2020-04-24 Test Time: 16:11:28 Operations Processor: ТАТЬЯНА MEASUREMENT RESULTS: Intervals: Rate: 66 CA: 174 QRSD: 92 QT: 424 QTc: 444 [place]: P: 63 CA: 174 QRS: -54 T: 76 INTERPRETIVE STATEMENTS: Normal sinus rhythm Possible Left atrial enlargement Left axis deviation Anteroseptal infarct, age undetermined Abnormal ECG Compared to ECG 06/12/2017 17:22:52 Left-axis deviation now present Myocardial infarct finding still present Electronically Signed On 04-25-20 08:28:53 TRANSFER AND [employer] UP WORKER by Satya Thompson
[2020-04-25] MEDS ORDERED: ENOXAPARIN 40 MG/0.4 ML SQ ONE (08:42)
[2020-04-25] MEDS ORDERED: AMLODIPINE 5 MG TAB PO SCH (09:00)
[2020-04-25] MEDS: ENOXAPARIN 40 MG/0.4 ML SQ SCH (09:46)
--- NOTE | 2020-04-25 10:55 | CON ---
Date of Consultation: 04/25/2020 Reason For Consultation: Ventricular tachycardia and syncope. History Of Present Illness: Ms. Villatoro is 89-year-old, has a history of dementia, hypertension, dysl ipidemia, came in with syncope, was found to have ventricular tachycardia on the monitor. I recommen ded we use amiodarone IV IV drip. She has not had any further ventricular tachycardia. D enied PND, orthopnea, pedal edema. Denied any chest pain, nausea, vomiting, diaphoresis. Denied pal pitation, but she did have syncope. Monitor showed ventricular tachycardia with rapid ventricular re sponse. Past Medical History: As stated above. Allergies: MORPHINE AND PENICILLIN. Review of Systems: Positive for being a DNR. Social History: Negative. Family History: Negative. Medications: At home include aspirin, Norvasc, Fosamax, Zocor, Zestril, and Aricept. Physical Examination: Vital Signs: Stable, afebrile. HEENT: Negative. Neck: Supple with no bruit. Chest: Clear. Cardiac: Regular rhythm and rate with an aortic sclerosis murmur. No gallops or rubs. Abdomen: Benign. Extremities: Revealed no clubbing, cyanosis, or edema. Diagnostic Data: Showed UTI, otherwise was negative. EKG was nonspecific. Impression And Plan: Syncope secondary to ventricular tachycardia. The patient is a do not resuscit ate. I am not so sure how aggressive we need to be as far as workup, but I would like her to get a 2 D echocardiogram. I think she needs to be on IV amiodarone for about 24 hours. We will switch her t o p.o. amiodarone after that and see how she does. If she continues to have ventricular tachycardia, we will consider an EP consult. Rest of her problems including hypertension, dyslipidemia, dementia , and osteoporosis are stable at this point. We will continue to follow her. ERLINDA/ASHLEY Voice ID: [id number] Report ID: [id number]
[2020-04-25] MEDS ORDERED: AMIODARONE HCL 200 MG TAB PO ONE ×2 (15:40→23:30)
[2020-04-25] MEDS ORDERED: lisinopriL 10 MG TAB ONE (17:59)
[2020-04-25] MEDS ORDERED: MAGNESIUM OXIDE 400 MG TAB ONE (17:59)
[2020-04-25] MEDS: CALCIUM CARBONATE 500 MG TAB PO SCH (18:00)
[2020-04-25] MEDS: lisinopriL 10 MG TAB PO SCH (18:13)
[2020-04-25] MEDS: SERTRALINE HCL 50 MG TAB PO SCH (18:13)
[2020-04-25] MEDS: DONEPEZIL HCL 5 MG TAB PO SCH (18:14)
[2020-04-25] MEDS: MAGNESIUM OXIDE 400 MG TAB PO SCH (18:14)
[2020-04-25] MEDS ORDERED: SERTRALINE HCL 50 MG TAB ONE (18:17)
[2020-04-25] MEDS ORDERED: DONEPEZIL HCL 5 MG TAB ONE (18:18)
--- NOTE | 2020-04-25 18:34 | PN ---
Date of Progress Note: 04/25/2020 The patient is somewhat confused; however, as the discussion progressed, became more orientated. The issue of the Ledesma catheter was discussed. We will try to discontinue it and see how she handles th is part. Her rhythm is more stable now gradually decreasing her amiodarone and Cardiology suggest fo r switch to p.o. tomorrow. At this time, possibly we can transfer her to floor care, mobilize her be fore she is discharged as she lives along in assisted living. We will have ENT evaluate her sinus fr acture as well. HR/MODL Voice ID: [id number] Report ID: [id number]
[2020-04-25] MEDS ORDERED: AMLODIPINE 10 MG TAB PO ONE (21:06)
[2020-04-25] MEDS: DIPHENHYDRAMINE 25 MG TAB/CAP PO PRN (21:38)
[2020-04-25] MEDS ORDERED: DIPHENHYDRAMINE 25 MG TAB/CAP ONE (21:51)
[2020-04-25] MEDS ORDERED: AMLODIPINE 10 MG TAB ONE (21:51)
[2020-04-26] MEDS: ATORVASTATIN 10 MG TAB PO SCH (10:30)
[2020-04-26] MEDS: AMLODIPINE 5 MG TAB PO SCH (10:30)
[2020-04-26] MEDS: ENOXAPARIN 40 MG/0.4 ML SQ SCH (10:31)
[2020-04-26] MEDS: AMIODARONE HCL 200 MG TAB PO SCH ×2 (10:31→20:13)
--- NOTE | 2020-04-26 13:16 | PN ---
The patient is still quite confused, although she is orientated when talked to as far as place is con cerned. Her eye is somewhat improved. She can now open it. layboy tender around the area of the ecc hymosis. On the bladder situation with the catheter removed, she has a history of having a pessary i nserted. She is still leaking some. Discussion of disposition was made with the family and felt drew t she needs to move on from her independent living to an assisted living condition at the minimum. W e are awaiting the echo. She has tolerated the p.o. amiodarone as far as her rhythm is concerned and if stable, she could be discharged in the a.m. HR/MODL Voice ID: [id number] Report ID: [id number]
[2020-04-26] MEDS: lisinopriL 10 MG TAB PO SCH (17:18)
[2020-04-26] MEDS: MAGNESIUM OXIDE 400 MG TAB PO SCH (17:18)
[2020-04-26] MEDS: DONEPEZIL HCL 5 MG TAB PO SCH (17:18)
[2020-04-26] MEDS: SERTRALINE HCL 50 MG TAB PO SCH (17:18)
[2020-04-26] MEDS: CALCIUM CARBONATE 500 MG TAB PO SCH (17:24)
[2020-04-26] MEDS: DIPHENHYDRAMINE 25 MG TAB/CAP PO PRN (20:12)
[2020-04-26] MEDS: CIPROFLOXACIN HCL 250 MG TAB PO SCH (20:13)
[2020-04-27 04:14] LABS: Potassium 4.2 mmol/L (3.5-5.1)
[2020-04-27] MEDS: ENOXAPARIN 40 MG/0.4 ML SQ SCH (09:14)
[2020-04-27] MEDS: AMIODARONE HCL 200 MG TAB PO SCH ×2 (09:14→20:47)
[2020-04-27] MEDS: AMLODIPINE 5 MG TAB PO SCH (09:15)
[2020-04-27] MEDS: CIPROFLOXACIN HCL 250 MG TAB PO SCH ×2 (09:15→20:47)
[2020-04-27] MEDS: ATORVASTATIN 10 MG TAB PO SCH (09:15)
--- NOTE | 2020-04-27 10:21 | PN ---
Date of Progress Note: 04/26/2020 Ms. Villatoro had came in with ventricular tachycardia causing syncope. She remains on IV amiodarone fo r approximately 24 hours now without any recurrence or ventricular tachycardia. We will switch her t o p.o. amiodarone 400 mg p.o. b.i.d. In the morning if she has not had any more ventricular tachycar lasha, we will send her home on amiodarone 400 b.i.d. and we will see her in the office in the very boy r future. We will have to switch her dose to [address]. If she has any recurrent supraventricular tachycardia, we will consider electrophysiology consult. ERLINDA/ASHLEY Voice ID: [id number] Report ID: [id number]
--- NOTE | 2020-04-27 13:08 | PN ---
Date of Progress Note: 04/27/2020 Subjective: Ms. Villatoro has been followed for ventricular tachycardia and syncope. Ms. Villatoro has been switched to amiodarone 400 mg 1 p.o. b.i.d. Has not had any further ventricular tachycardia or syncope. She will go home today on amiodarone 400 b.i.d. for 6 more days after which she goes to 200 daily. I will see her in the office in the next week. BRYAN Voice ID: [id number] Report ID: [id number]
[2020-04-27] MEDS: ACETAMINOPHEN 500 MG TAB PO PRN (16:44)
[2020-04-27] MEDS: CALCIUM CARBONATE 500 MG TAB PO SCH (17:43)
[2020-04-27] MEDS: lisinopriL 10 MG TAB PO SCH (17:43)
[2020-04-27] MEDS: SERTRALINE HCL 50 MG TAB PO SCH (17:44)
[2020-04-27] MEDS: DONEPEZIL HCL 5 MG TAB PO SCH (17:45)
[2020-04-27] MEDS: MAGNESIUM OXIDE 400 MG TAB PO SCH (17:45)
[2020-04-27] MEDS: DIPHENHYDRAMINE 25 MG TAB/CAP PO PRN (20:47)
[2020-04-27 22:00] VITALS: O2SAT 96
[2020-04-28] MEDS: AMLODIPINE 5 MG TAB PO SCH (08:48)
[2020-04-28] MEDS: ENOXAPARIN 40 MG/0.4 ML SQ SCH (08:48)
[2020-04-28] MEDS: ATORVASTATIN 10 MG TAB PO SCH (08:48)
[2020-04-28] MEDS: AMIODARONE HCL 200 MG TAB PO SCH (08:50)
[2020-04-28] MEDS: CIPROFLOXACIN HCL 250 MG TAB PO SCH (08:51)
--- NOTE | 2020-04-28 11:40 | PN ---
Date of Progress Note: 04/28/2020 The patient is quite confused this morning. Her eye swelling and cheek swelling have subsided somewh at. She is in normal sinus rhythm on p.o. amiodarone and awaiting insurance placement for a HR/MODL Voice ID: [id number] Report ID: [id number]
[2020-04-28 16:56] VITALS: BP 145/61; TEMP 98.9
[2020-04-28] MEDS: DONEPEZIL HCL 5 MG TAB PO SCH (18:00)
[2020-04-28] MEDS: CALCIUM CARBONATE 500 MG TAB PO SCH (18:00)
[2020-04-28] MEDS: lisinopriL 10 MG TAB PO SCH (18:05)
[2020-04-28] MEDS: SERTRALINE HCL 50 MG TAB PO SCH (18:06)
[2020-04-28] MEDS: MAGNESIUM OXIDE 400 MG TAB PO SCH (18:06)
--- NOTE | 2020-04-29 09:01 | ECHO ---
HEIGHT: 5 ft 5 in WEIGHT: 165 lb 0 oz DATE OF STUDY: 04/28/[address]: Satya Thompson MD 2-DIMENSIONAL: YES M.MODE: YES DOPPLER: YES COLOR FLOW: YES TDS: NO PORTABLE: NO DEFINITY: NO BUBBLE STUDY: NO DIAGNOSIS: SYNCOPE CARDIAC HISTORY: CATHERIZATION: NO SURGERY: NO PROSTHETIC VALVE: NO PACEMAKER: NO MEASUREMENTS (cm) DIASTOLIC (NORMALS) SYSTOLIC (NORMALS) IVSd 0.9 (0.6-1.2) LA Diam 2.9 (1.9-4.0) LVEF 67% LVIDd 3.5 (3.5-5.7) LVIDs 2.2 (2.0-3.5) %FS 36% LVPWd 1.1 (0.6-1.2) Ao Diam 2.7 (2.0-3.7) 2 DIMENSIONAL ASSESSMENT: RIGHT ATRIUM: NORMAL LEFT ATRIUM: NORMAL RIGHT VENTRICLE: NORMAL LEFT VENTRICLE: NORMAL TRICUSPID VALVE: NORMAL MITRAL VALVE: NORMAL PULMONIC VALVE: NORMAL AORTIC VALVE: NORMAL PERICARDIAL EFFUSION: NONE AORTIC ROOT: NORMAL LEFT VENTRICULAR WALL MOTION: NORMAL DOPPLER/COLOR FLOW: NORMAL COMMENTS: NORMAL 2D ECHOCARDIOGRAM WITH DOPPLER. NO WALL MOTION ABNORMALITY. NO EFFUSION. TECHNOLOGIST: Michael DUNN
--- NOTE | 2020-04-29 22:13 | PN ---
Date of Progress Note: 04/28/2020 The patient is quite confused this morning. Her eye swelling and cheek swelling have subsided somewh at. She is in normal sinus rhythm, on p.o. amiodarone and awaiting insurance placement for a SNF. HR/MODL Voice ID: [id number] Report ID: [id number]
--- NOTE | 2020-06-29 12:21 | DS ---
Date of Discharge: 04/28/2020 Hospital Course: The patient was admitted to the hospital on 04/24 after presenting to the emergency room following apparent syncope episode in which she was noticed to be on the floor in her residence at an assisted living facility. She was noted to be in V-tach. Amiodarone IV was given with good r esponse. She was then placed on IV amiodarone drip and admitted for further care and observation. D uring her hospital stay, she had no further episodes of V-tach and therefore, this was nonsustained a nd did respond to the amiodarone, which she was then placed on orally. She has significant altered m ental status, which was variable during her hospital stay. Towards the end of her stay, she became b ack to baseline according to the family. Her blood pressure which has been an issue was under good c ontrol. She was seen by Cardiology who felt that the use of the amiodarone in an oral form would be indicated at this admission and to be discharged on as well. She did have some fractures of the sinu ses undisplaced and was instructed to follow up with ENT in a couple of weeks. She was discharged on amiodarone 400 mg b.i.d. for a week and then change to 200 mg. It was also discussed that the patie nt should probably move from an independent living to a more controlled environment. Awaiting for in surance approval, which was obtained and she was discharged in fair condition on 04/28. Final Diagnoses: Syncope secondary to ventricular tachycardia, nonsustained; AMS; hypertension, cont rolled; dementia. HR/MODL Voice ID: [id number] Report ID: [id number]
== END 2020-04-28 18:15 | DRG 310 ==
LOC: ER 15:09 → ERHOLD 19:06 → 4TH 04-25 22:00
PROVIDERS: ADMIT Family Medicine; ATTEND Family Medicine
PROC: 0JQ13ZZ Repair Face Subcutaneous Tissue and Fascia, Percutaneous Approach (ICD-10-PCS; principal; 2020-04-24)
DX: I47.2 Ventricular tachycardia (principal); I10 Essential (primary) hypertension; M81.0 Age-related osteoporosis without current pathological fracture; F41.9 Anxiety disorder, unspecified; I25.10 Atherosclerotic heart disease of native coronary artery without angina pectoris; N31.9 Neuromuscular dysfunction of bladder, unspecified; F03.90 Unspecified dementia, unspecified severity, without behavioral disturbance, psychotic disturbance, mood disturbance, and anxiety; E78.5 Hyperlipidemia, unspecified; S01.112A Laceration without foreign body of left eyelid and periocular area, initial encounter; W18.30XA Fall on same level, unspecified, initial encounter; Z88.5 Allergy status to narcotic agent; Z88.0 Allergy status to penicillin; Z79.82 Long term (current) use of aspirin; Z79.899 Other long term (current) drug therapy; Z95.5 Presence of coronary angioplasty implant and graft; Z87.891 Personal history of nicotine dependence; Z96.659 Presence of unspecified artificial knee joint; Z90.710 Acquired absence of both cervix and uterus; Z60.2 Problems related to living alone; Z66 Do not resuscitate; Z20.822 Contact with and (suspected) exposure to COVID-19
CPT/HCPCS: 36415; 70450; 70486; 72125; 76377; 80048; 80053; 80076; 81003; 81015; 82550; 82553; 82947; 83690; 83735; 84484; 85025; 85610; 85730; 87077; 87086; 87088; 87186; 93005; 93306; 97110; 97112; 97116; 97161; 99285; J0282; J1650; J7060; U0003

== ENCOUNTER 2020-06-18 21:38 | Observation (INO) | payer OTHER, MEDICARE ==
--- OUTSIDE RECORDS SUMMARY | 2020-06-18 21:42 | XMS REPORT | Continuity of Care Document ---
:1930 Author Organization [facility] t Address [address] [place] [address] Care Team Providers Name Role Phone Romero Zhu MD Primary Care Physician Problems Condition Condition Condition Status Onset Resolution Last Treating Co mments Source Name Details Category Date Date Treatment Clinician Date SOB SOB Disease Active 2015-02 [place] (shortness (shortness 1-15 Me th[facility] of breath) of breath) 00:00: st 00 Coronary Coronary Disease Active 2015-02 [place] artery artery 115 [facility] disease disease 00:00: st involving involving 00 moapa moapa heart with heart with angina angina pectoris pectoris Essential Essential Disease Active 2015-02 Josiah ston hypertensi hypertensi 1-15 Me th[facility] on on 00:00: st 00 Coronary Coronary Disease Active 2015-02 [place] arterioscl arterioscl 1-11 Me thodi erosis in erosis in 00:00: st moapa moapa 00 artery artery Allergies, Adverse Reactions, Alerts Allergy Allergy Status Severity Reaction(s) Onset Inactive Treating Comm ents Source Name Type Date Date Clinician Morphine Propensi Active Shortness Of 2015-02 [place] ty to Breath 1-15 [facility] adverse 00:00: st reaction 00 s to drug Penicill Propensi Active 2015-02 [place] ins ty to 1-15 [facility] adverse 00:00: st reaction 00 s to drug Family History Family Member Diagnosis Comments Start Date Stop Date Source Natural father Pulmonary embolism [facility] [facility] Natural mother Heart attack [place] [facility] Natural mother Heart failure [place] [facility] Natural mother Stroke [place] [facility] Natural sister Diabetes [place] [facility] Natural sister Stroke [place] [facility] Social History Social Habit Start Date Stop Date Quantity Comments Source Tobacco use and 2016-03-24 2016-03-24 Never used [place] [facility] exposure 00:00:00 00:00:00 Alcohol intake 2016-03-24 2016-03-24 Current [place] [facility] 00:00:00 00:00:00 non-drinker of alcohol (finding) History of 1978-03-16 Current smoker [facility] [place] [facility] tobacco use 00:00:00 Sex Ass[birth year] At [birth year] [place] [facility] 00:00:00 00:00:00 Smoking Status Start Date Stop Date Source Former smoker 2016-03-24 00:00:00 2016-03-24 00:00:00 [facility] Medications Ordered Filled Start Stop Current Ordering Indication Dosage Frequency Signature Comments Components Source Medication Medication Date Date Medication? Clinician (SIG) Name Name oxybutynin Yes 5mg [id number] Take 5 mg Cleaning (DITROPAN) 2- [id number] by mouth 3 [facility] 5 MG tablet 23:06: 3D (three) st 52 times a day. multivitami 2016- Yes 1{tbl} QD Take 1 [place] 2-01 tablet by [facility] (THERAGRAN) 23:06: mouth st tablet 52 daily. alendronate Yes 70mg Q1W Take 70 mg [facility] (FOSAMAX) 2-01 by mouth [facility] 70 MG 23:06: every 7 st tablet 52 days. Take in the morning with a full glass of water, on an empty stomach, and do not take anything else by mouth or lie down for the next 30 min. docusate 2017- Yes 200mg QD Take 200 [place] sodium 2-01 mg by [facility] (COLACE) 23:06: mouth st 100 MG 52 nightly. capsule magnesium 2017- Yes 400mg QD Take 400 Josiah ston oxide 2-01 mg by [facility] (MAG-OX) 23:06: mouth st 400 mg 52 daily. tablet aspirin 2016- Yes 81mg QD Take 81 mg [place] (ECOTRIN) 2-01 by mouth [facility] i 81 MG 23:06: daily. st enteric 52 coated tablet BIOTIN ORAL 2016- Yes 5000ug QD Take 5,000 [facility] 2-01 mcg by [facility] 23:06: mouth st 52 daily. CALCIUM Yes 600mg Q.5D Take 600 [place] CITRATE 2-01 mg by [facility] ORAL 23:06: mouth 2 st 52 (two) times a day. lisinopril Yes 10mg QD Take 10 mg H ky[place] (PRINIVIL,Z 2-01 by mouth Meth [place] ESTRIL) 10 23:06: daily. st mg tablet 52 gemfibrozil 2015-02 Yes Essential 600mg Q.5D Take 1 [facility] (LOPID) 600 2-13 hypertensio tablet [facility] MG tablet 00:00: n ([address] 00 total) by mouth 2 (two) times a day before meals. simvastatin 2015-02 Yes Essential 20mg QD Take 1 [facility] (ZOCOR) 20 2-13 hypertensio tablet (20 [facility] MG tablet 00:00: n mg total) st 00 by mouth daily. Procedures This patient has no known procedures. Plan of Care Planned Activity Planned Date Details Comments Source Future Scheduled 2020-09-13 INFLUENZA VACCINE [facility] Test 00:00:00 [code = INFLUENZA VACCINE] Future Scheduled 1995-11-15 65+ PNEUMOCOCCAL [facility] Test 00:00:00 VACCINE (1 of 1 - PPSV23) [code = 65+ PNEUMOCOCCAL VACCINE (1 of 1 - PPSV23)] Future Scheduled 1980 SHINGLES VACCINES (#1) H ky[facility] Test 00:00:00 [code = SHINGLES VACCINES (#1)] Future Scheduled 1946 COVID-19 VACCINE (1) Josiah aguilar [facility] Test 00:00:00 [code = COVID-19 VACCINE (1)] Results This patient has no known results.
[2020-06-18 23:58] LABS: Absolute Lymphocytes (CBC) 1.8 K/uL (0.7-4.9); Basophils % 1.2 % (0-1.3); Hematocrit 38.7 % (36.0-45.0); Lymphocytes % 29.4 % (15.3-44.8); MPV 9.1 fL (7.6-11.3); RBC Red Blood Cell Count 4.45 M/uL (3.86-4.86)
[2020-06-19] LABS: Protime INR 0.97
[2020-06-19] MEDS ORDERED: ACETAMINOPHEN 500 MG TAB ONE (00:02)
[2020-06-19 00:13] LABS: ALT/SGPT 18 U/L (12-78); AST/SGOT 18 U/L (15-37); Albumin 3.8 g/dL (3.4-5.0); Alkaline Phosphatase 57 U/L (45-117); BUN Blood Urea Nitrogen 26 mg/dL (7-18); Bicarbonate 27 mmol/L (21-32); Bilirubin Direct 0.1 mg/dL (0-0.2); Bilirubin Total 0.4 mg/dL (0.2-1.0); Glucose Level 96 mg/dL (74-106); NT PRO-BNP 424 pg/mL (<450); Protein, Total 6.8 g/dL (6.4-8.2); Sodium Level 142 mmol/L (136-145); Troponin (Emerg Dept Use Only) < 0.02 ng/mL (0.0-0.045)
--- NOTE | 2020-06-19 03:58 | ER ---
Nurse's Notes [facility] Name: Fanta Villatoro Age: 89 yrs Sex: Female : 1930 Arrival Date: 06/18/2020 Time: 22:07 Bed 17 Private MD: Diagnosis: Near Syncope;Bradycardia Presentation: 06/18 22:10 Chief complaint: Chief complaint: Patient states: around 5 PM, felt unsteady on my ca1 feet, felt weak on R knee. 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 But I really don't know if it's my R knee or my R leg. I was walking I felt pain on my R knee, I also feel my R leg is was heavy so I almost fell, but I grabbed the hand rail so I did not fall. Coronavirus screen: Client denies travel out of the [place] in the last 14 days. At this time, the client does not indicate any symptoms associated with coronavirus-19. Ebola Screen: Patient negative for fever greater than or equal to 101.5 degrees Fahrenheit, and additional compatible Ebola Virus Disease symptoms Patient denies exposure to infectious person. Patient denies travel to an Ebola-affected area in the 21 days before illness onset. No symptoms or risks identified at this time. Initial Sepsis Screen: Does the patient meet any 2 criteria? No. Patient's initial sepsis screen is negative. Does the patient have a suspected source of infection? No. Patient's initial sepsis screen is negative. Risk Assessment: Do you want to hurt yourself or someone else? Patient reports no desire to harm self or others. Onset of symptoms was June 18, 2020. 22:10 Method Of Arrival: Ambulatory ca1 22:10 Acuity: ABDIFATAH 3 ca1 Historical: - Allergies: 22:18 Morphine; ca1 22:18 PENICILLINS; ca1 - PMHx: 22:18 High Cholesterol; Hypertension; ca1 - PSHx: 22:18 Knee surgery; ca1 - Immunization history:: Client reports receiving the 2nd dose of the Covid vaccine, Client reports receiving the 1st dose of the Covid vaccine, Pneumococcal vaccine is up to date, Flu vaccine is up to date. - Social history:: Smoking status: Patient/guardian denies using tobacco, the patient reports quitting approximately 40 years ago. Screenin:55 Abuse screen: Denies threats or abuse. Nutritional screening: No deficits noted. ea Tuberculosis screening: No symptoms or risk factors identified. Fall Risk IV access (20 points). Assessment: 23:56 General: Appears in no apparent distress. Behavior is calm, cooperative, appropriate ea for age. Pain: Denies pain. Neuro: Level of Consciousness is awake, alert, obeys commands, Oriented to person, place, time. Cardiovascular: Patient's skin is warm and dry. Respiratory: Airway is patent Respiratory effort is even, unlabored, Respiratory pattern is regular, symmetrical. Derm: Skin is pink, warm \T\ dry. 06/19 00:00 Reassessment: Patient and/or family updated on plan of care and expected duration. Pain ea level reassessed. Patient is alert, oriented x 3, equal unlabored respirations, skin warm/dry/pink. 01:30 Reassessment: Patient and/or family updated on plan of care and expected duration. Pain ea level reassessed. Patient is alert, oriented x 3, equal unlabored respirations, skin warm/dry/pink. 02:50 Reassessment: Patient and/or family updated on plan of care and expected duration. Pain ea level reassessed. Patient is alert, oriented x 3, equal unlabored respirations, skin warm/dry/pink. 03:45 Reassessment: Patient and/or family updated on plan of care and expected duration. Pain ea level reassessed. Patient is alert, oriented x 3, equal unlabored respirations, skin warm/dry/pink. Provider updating pt on plan of care. 04:00 Reassessment: Patient and/or family updated on plan of care and expected duration. Pain ea level reassessed. Patient is alert, oriented x 3, equal unlabored respirations, skin warm/dry/pink. 05:50 Reassessment: Patient and/or family updated on plan of care and expected duration. Pain ea level reassessed. Patient is alert, oriented x 3, equal unlabored respirations, skin warm/dry/pink. 06:54 Reassessment: Patient and/or family updated on plan of care and expected duration. Pain ea level reassessed. Patient is alert, oriented x 3, equal unlabored respirations, skin warm/dry/pink. 08:00 Reassessment: Patient and/or family updated on plan of care and expected duration. Pain ll1 level reassessed. Patient is alert, oriented x 3, equal unlabored respirations, skin warm/dry/pink. Vital Signs: 06/18 22:10 BP 121 / 72; Pulse 49; Resp 16 S; Temp 98(TE); Pulse Ox 96% on R/A; Weight 70.31 kg ca1 (R); Height 5 ft. 5 in. (165.10 cm) (R); 06/19 00:06 BP 181 / 70 Supine; Pulse 49; Resp 17; Pulse Ox 95% ; ea 00:08 BP 169 / 70 Sitting; Pulse 51; Resp 19; Pulse Ox 93% ; ea 00:10 BP 167 / 61 Standing; Pulse 50; Resp 17; Pulse Ox 94% ; ea 07:30 BP 161 / 61; Pulse 50; Resp 17; Pulse Ox 95% on R/A; Pain 0/10; ll1 06/18 22:10 Body Mass Index 25.79 (70.31 kg, 165.10 cm) ca1 ED Course: 06/18 22:07 Patient arrived in ED. bp1 22:16 Triage completed. ca1 22:18 Arm band placed on right wrist. ca1 22:55 Edwardo Atkinson MD is Attending Physician. mh7 23:15 Pamela Valdes RN is Primary Nurse. ea 23:45 Inserted saline lock: 20 gauge in right forearm, using aseptic technique. Blood rr5 collected. 23:56 Patient has correct armband on for positive identification. Bed in low position. Call ea light in reach. Side rails up X2. 06/19 01:29 CT Head Brain wo Cont In Process Unspecified. EDMS 02:39 XRAY Chest (1 view) In Process Unspecified. EDMS 02:40 Knee Right 3 View XRAY In Process Unspecified. EDMS 03:56 Shannan Albarado MD is Hospitalizing Provider. 7 06:54 No provider procedures requiring assistance completed. Patient admitted, IV remains in ea place. Administered Medications: 06/18 23:54 Drug: Tylenol 1000 mg Route: PO; ea 06/19 04:15 Follow up: Response: No adverse reaction ea Outcome: 03:57 Decision to Hospitalize by Provider. 7 06:54 Instructed on the need for admit, Demonstrated understanding of instructions. ea 08:14 Admitted to Tele accompanied by tech, room 230, with chart, Report called to Robina Dorsey RN ll1 on 08:14 Condition: stable 08:59 Patient left the ED. ll1 Signatures: Dispatcher [employer] EDMS Pamela Valdes RN RN ea Roque, Raymond, RN RN rr5 Christine Medrano RN RN ca1 Lewis, Lynsay, RN RN ll1 Margaret Marques Maurice, MD MD mh7 Corrections: (The following items were deleted from the chart) 00:22 00:08 BP 169 / 70; Pulse 51bpm; Resp 19bpm; Pulse Ox 93%; tenzin dave 00:22 00:10 BP 167 / 61; Pulse 50bpm; Resp 17bpm; Pulse Ox 94%; tenzin dave
--- NOTE | 2020-06-19 03:58 | EDPHYS ---
Physician Documentation [facility] Name: Fanta Villatoro Age: 89 yrs Sex: Female : 1930 Arrival Date: 06/18/2020 Time: 22:07 Bed 17 Private MD: ED Physician Edwardo Atkinson HPI: 06/19 03:39 This 89 yrs old Female presents to ER via Ambulatory with complaints of mh7 General Weakness. 03:39 The patient presents with dizziness, feeling faint. Onset: The symptoms/episode mh7 began/occurred today. Context: occurred at a penitentiary or assisted living facility, occurred while the patient was walking, just prior to the episode the patient experienced no apparent symptoms. Modifying factors: The symptoms are alleviated by nothing, the symptoms are aggravated by standing up. Associated signs and symptoms: Pertinent positives: near-syncope, Pertinent negatives: abdominal pain, agitation, ataxia, blurred vision, chest pain, combativeness, confusion, diaphoresis, focal weakness, head injury, headache, nausea, numbness, palpitations, , seizure, shortness of breath, syncope, tingling, vomiting. Severity of symptoms: At their worst the symptoms were moderate today, in the emergency department the symptoms have improved moderately. 03:51 Patient's baseline: Neuro: alert and fully oriented, Motor: no deficits, Ambulation: mh7 walks with assist only, uses walker, Speech: normal. Historical: - Allergies: 06/18 22:18 Morphine; ca1 22:18 PENICILLINS; ca1 - PMHx: 22:18 High Cholesterol; Hypertension; ca1 - PSHx: 22:18 Knee surgery; ca1 - Immunization history:: Client reports receiving the 2nd dose of the Covid vaccine, Client reports receiving the 1st dose of the Covid vaccine, Pneumococcal vaccine is up to date, Flu vaccine is up to date. - Social history:: Smoking status: Patient/guardian denies using tobacco, the patient reports quitting approximately 40 years ago. ROS: 06/19 03:51 Constitutional: Negative for fever, chills, and weight loss, Eyes: Negative for injury, mh7 pain, redness, and discharge, ENT: Negative for injury, pain, and discharge, Neck: Negative for injury, pain, and swelling, Cardiovascular: Negative for chest pain, palpitations, and edema, Respiratory: Negative for shortness of breath, cough, wheezing, and pleuritic chest pain, Abdomen/GI: Negative for abdominal pain, nausea, vomiting, diarrhea, and constipation, Back: Negative for injury and pain, : Negative for injury, bleeding, discharge, and swelling, Skin: Negative for injury, rash, and discoloration, Neuro: Negative for headache, weakness, numbness, tingling, and seizure, Psych: Negative for depression, anxiety, suicide ideation, homicidal ideation, and hallucinations, Allergy/Immunology: Negative for hives, rash, and allergies, Endocrine: Negative for neck swelling, polydipsia, polyuria, polyphagia, and marked weight changes, Hematologic/Lymphatic: Negative for swollen nodes, abnormal bleeding, and unusual bruising. Exam: 03:51 Constitutional: This is a well developed, well nourished patient who is awake, alert, mh7 and in no acute distress. Head/Face: Normocephalic, atraumatic. Eyes: Pupils equal round and reactive to light, extra-ocular motions intact. Lids and lashes normal. Conjunctiva and sclera are non-icteric and not injected. Cornea within normal limits. Periorbital areas with no swelling, redness, or edema. Neck: Trachea midline, no thyromegaly or masses palpated, and no cervical lymphadenopathy. Supple, full range of motion without nuchal rigidity, or vertebral point tenderness. No Meningismus. Chest/axilla: Normal chest wall appearance and motion. Nontender with no deformity. No lesions are appreciated. Cardiovascular: Regular rate and rhythm with a normal S1 and S2. No gallops, murmurs, or rubs. Normal PMI, no JVD. No pulse deficits. Respiratory: Lungs have equal breath sounds bilaterally, clear to auscultation and percussion. No rales, rhonchi or wheezes noted. No increased work of breathing, no retractions or nasal flaring. Abdomen/GI: Soft, non-tender, with normal bowel sounds. No distension or tympany. No guarding or rebound. No evidence of tenderness throughout. Back: No spinal tenderness. No costovertebral tenderness. Full range of motion. Skin: Warm, dry with normal turgor. Normal color with no rashes, no lesions, and no evidence of cellulitis. MS/ Extremity: Pulses equal, no cyanosis. Neurovascular intact. Full, normal range of motion. Neuro: Awake and alert, GCS 15, oriented to person, place, time, and situation. Cranial nerves II-XII grossly intact. Motor strength 5/5 in all extremities. Sensory grossly intact. Cerebellar exam normal. Normal gait. Psych: Awake, alert, with orientation to person, place and time. Behavior, mood, and affect are within normal limits. Vital Signs: 06/18 22:10 BP 121 / 72; Pulse 49; Resp 16 S; Temp 98(TE); Pulse Ox 96% on R/A; Weight 70.31 kg ca1 (R); Height 5 ft. 5 in. (165.10 cm) (R); 06/19 00:06 BP 181 / 70 Supine; Pulse 49; Resp 17; Pulse Ox 95% ; ea 00:08 BP 169 / 70 Sitting; Pulse 51; Resp 19; Pulse Ox 93% ; ea 00:10 BP 167 / 61 Standing; Pulse 50; Resp 17; Pulse Ox 94% ; ea 07:30 BP 161 / 61; Pulse 50; Resp 17; Pulse Ox 95% on R/A; Pain 0/10; ll1 06/18 22:10 Body Mass Index 25.79 (70.31 kg, 165.10 cm) ca1 MDM: 03:52 Differential diagnosis: cardiac arrhythmia, generalized weakness, hypovolemia, 7 idiopathic dizziness, near-syncope, syncope. Data reviewed: vital signs, nurses notes, old medical records, lab test result(s), cardiac enzymes, CBC, electrolytes, urinalysis, EKG, radiologic studies, CT scan, plain films. Data interpreted: Pulse oximetry: on room air is 96 %. Interpretation: normal. Counseling: I had a detailed discussion with the patient and/or guardian regarding: the historical points, exam findings, and any diagnostic results supporting the discharge/admit diagnosis, the presence of at least one elevated blood pressure reading (>120/80) during this emergency department visit, lab results, radiology results, the need for further work-up and treatment in the hospital. Response to treatment: the patient's symptoms have markedly improved after treatment. 03:57 Patient medically screened. [facility] 06/18 23:36 Order name: Basic Metabolic Panel [facility] 06/18 23:36 Order name: CBC with Diff [facility] 06/18 23:36 Order name: LFT's [facility] 06/18 23:36 Order name: Magnesium [facility] 06/18 23:36 Order name: NT PRO-BNP; Complete Time: 00:43 [facility] 06/18 23:36 Order name: PT-INR; Complete Time: 00:43 [facility] 06/18 23:36 Order name: Troponin (emerg Dept Use Only); Complete Time: 00:43 [facility] 06/18 23:36 Order name: XRAY Chest (1 view) [facility] 06/18 23:36 Order name: Basic Metabolic Panel; Complete Time: 00:43 [facility] 06/18 23:36 Order name: CBC with Automated Diff; Complete Time: 00:43 [facility] 06/18 23:36 Order name: Liver (Hepatic) Function; Complete Time: 00:43 [facility] 06/18 23:36 Order name: Magnesium; Complete Time: 00:43 [facility] 06/19 05:41 Order name: SARS-COV-[address] [facility] 06/18 23:36 Order name: EKG; Complete Time: 23:36 [facility] 06/18 23:36 Order name: Cardiac monitoring; Complete Time: 00:19 [facility] 06/18 23:36 Order name: EKG - Nurse/Tech; Complete Time: 00:19 [facility] 06/18 23:36 Order name: IV Saline Lock; Complete Time: 23:45 [facility] 06/18 23:36 Order name: Labs collected and sent; Complete Time: 23:45 [facility] 06/18 23:36 Order name: O2 Per Protocol; Complete Time: 00:22 [facility] 06/18 23:36 Order name: O2 Sat Monitoring; Complete Time: 00:22 [facility] 06/18 23:36 Order name: Urine Dipstick-Ancillary (obtain specimen); Complete Time: 00:19 [facility] 06/18 23:36 Order name: Knee Right 3 View XRAY [facility] 06/18 23:37 Order name: Orthostatics; Complete Time: 00:19 [facility] 06/19 00:43 Order name: CT Head Brain wo Cont [facility] 06/19 05:01 Order name: CONS Physician Consult EDMS Administered Medications: 06/18 23:54 Drug: Tylenol 1000 mg Route: PO; ea 06/19 04:15 Follow up: Response: No adverse reaction ea Disposition: 06/19/20 03:57 Hospitalization ordered by Shannan Albarado for Inpatient Admission. Preliminary diagnosis are Near Syncope, Bradycardia. - Bed requested for Telemetry/MedSurg (Inpatient). - Status is Inpatient Admission. ll1 - Condition is Stable. - Problem is new. - Symptoms have improved. Signatures: Dispatcher [employer] EDTN Mimi Javier, RN RN tl1 Pamela Valdes, RN RED ea Christine Medrano, RN RN ca1 Juan M Velazquez RN RN ll1 Edwardo Atkinson MD MD 7 Corrections: (The following items were deleted from the chart) 05:00 04:19 CORONAVIRUS+MR.LAB.BRZ ordered. [facility] EDTN 05:50 03:57 Hospitalization Ordered by Shannan Albarado MD for Inpatient Admission. Preliminary tl1 diagnosis is Near Syncope; Bradycardia. Bed requested for Telemetry/MedSurg (Inpatient). Status is Inpatient Admission. Condition is Stable. Problem is new. Symptoms have improved. [facility] 06:47 05:50 06/19/2020 03:57 Hospitalization Ordered by Shannan Albarado MD for Inpatient tl1 Admission. Preliminary diagnosis is Near Syncope; Bradycardia. Bed requested for [facility] ER HOLD. Status is Inpatient Admission. Condition is Stable. Problem is new. Symptoms have improved. 1 08:59 06:47 06/19/2020 03:57 Hospitalization Ordered by Shannan Albarado MD for Inpatient ll1 Admission. Preliminary diagnosis is Near Syncope; Bradycardia. Bed requested for Telemetry/MedSurg (Inpatient). Status is Inpatient Admission. Condition is Stable. Problem is new. Symptoms have improved. tl1
--- NOTE | 2020-06-19 05:11 | P.HP ---
Certification for Inpatient Patient admitted to: Observation With expected LOS: <2 Midnights Patient will require the following post-hospital care: None Practitioner: I am a practitioner with admitting privileges, knowledge of patient current condition, hospital course, and medical plan of care. Services: Services provided to patient in accordance with Admission requirements found in Title 42 Section 412.3 of the Code of Federal Regulations <Russ Cummins S - Last Filed: 06/19/20 05:06> Patient admitted to: Observation With expected LOS: <2 Midnights <Shannan Albarado - Last Filed: 06/20/20 12:13> Patient History Date of Service: 06/19/20 Primary Care Provider: Marko Reason for admission: bradycardia History of Present Illness: Ms. Villatoro is an 89 yo F with HLD, HTN, osteoporosis, dementia, and anxiety here today after feelings of dizziness. She says she did not pass out. Denies nausea and vomiting. She says this happens rarely. She told her daughter that she passed out so the daughter her today, now patient denies this. EKG shows bradycardia to 49bpm. - Past Medical/Surgical History Diabetic: No -: Neurogenic Bladder -: IBS-rectocele -: Hyperlipidemia -: HTN -: Osteoporosis -: Depression -: History of C difficile colitis -: CAD with cardiac stent -: Former tobacco use -: dementia -: Multiple bladder lift surgeries -: Right ovary removal -: Hysterectomy -: Tonsillectomy -: Left hip repair -: Appendectomy -: Total knee replacement -: Cardiac stent Psychosocial/ Personal History: The patient is a . She has children. She lives by herself. - Family History Mother -: Heart disease, Hypertension, Diabetes, Stroke Notes: 2 sisters diabetic, brothers diabetic, parent htn and dm - Social History Smoking Status: Never smoker Alcohol use: No CD- Drugs: No Caffeine use: No Place of Residence: [facility] <Russ Cummins - Last Filed: 06/19/20 05:06> Date of Service: 06/19/20 <Shannan Albarado - Last Filed: 06/20/20 12:13> Allergies Penicillins Allergy (Verified 04/24/20 22:42) UNK morphine Adverse Reaction (Verified 04/24/20 22:42) Nausea/Vomiting Home Medications: Alendronate [Fosamax*] 1 tab PO SEECOM 04/24/20 Amlodipine [Norvasc*] 1 tab PO DAILY 04/24/20 Aspirin 1 tab PO DAILY 04/24/20 Calcium Carbonate [Calcium] 600 mg PO DAILY 6PM 04/24/20 Donepezil [Aricept*] 10 mg PO DAILY 6PM 04/24/20 Lisinopril [Zestril] 1 tab PO DAILY 6PM 04/24/20 Magnesium Oxide [Magnesium] 1 tab PO DAILY 6PM 04/24/20 Sertraline [Zoloft*] 25 mg PO DAILY 6PM 04/24/20 Simvastatin 1 tab PO DAILY 04/24/20 Amiodarone HCl [Cordarone*] 200 mg PO DAILY #30 tab 04/27/20 Review of Systems General: Unremarkable Eyes: Unremarkable ENT: Unremarkable Respiratory: Unremarkable Cardiovascular: Light Headedness, As per HPI Gastrointestinal: Unremarkable Genitourinary: Unremarkable Musculoskeletal: Unremarkable Integumentary: Unremarkable Neurological: Unremarkable Lymphatics: Unremarkable <Russ Cummins S - Last Filed: 06/19/20 05:06> Physical Examination - Physical Exam General: Alert, In no apparent distress, Cooperative, Demented HEENT: Atraumatic, Normocephalic, PERRLA, Mucous membr. moist/pink, EOMI, Sclerae nonicteric Neck: Supple, 2+ carotid pulse no bruit, JVD not distended, No Thyromegaly, No LAD Respiratory: Clear to auscultation bilaterally, Normal air movement Cardiovascular: No edema, Normal pulses, Normal S1 S2, No gallops, No rubs, No murmurs Capillary refill: <2 Seconds Gastrointestinal: Normal bowel sounds, Soft and benign, Non-distended, No ascites, No tenderness, No masses, No rebound, No guarding Musculoskeletal: No clubbing, No swelling, No contractures, No erythema, No tenderness, No warmth Integumentary: No rashes, No breakdown, No significant lesion, No tenderness/swelling, No erythema, No warmth, No cyanosis Neurological: Normal speech, Normal strength at 5/5 x4 extr, Normal tone, Sensation intact, Cranial nerves 3-12 intact, Dementia Lymphatics: No axilla or inguinal lymphadenopathy - Studies Laboratory Data (last 24 hrs) 06/18/20 23:44: PT 11.2, INR 0.97 06/18/20 23:44: WBC 6.00, Hgb 12.6, Hct 38.7, Plt Count 189 06/18/20 23:44: Sodium 142, Potassium 4.0, BUN 26 H, Creatinine 1.30, Glucose 96, Magnesium 2.0, Total Bilirubin 0.4, AST 18, ALT 18, Alkaline Phosphatase 57 <Russ Cummins - Last Filed: 06/19/20 05:06> Assessment and Plan - Problems (Diagnosis) (1) Dizziness Current Visit: Yes Status: Acute (2) Symptomatic bradycardia Current Visit: Yes Status: Acute (3) Anxiety Current Visit: No Status: Chronic (4) Dementia Current Visit: No Status: Chronic Qualifiers: Dementia type: unspecified type Dementia behavioral disturbance: without behavioral disturbance Qualified Code(s): F03.90 - Unspecified dementia without behavioral disturbance (5) Hyperlipidemia Current Visit: No Status: Chronic Qualifiers: Hyperlipidemia type: unspecified (6) Hypertension Current Visit: No Status: Chronic Qualifiers: Hypertension type: essential hypertension (7) Neurogenic bladder Current Visit: No Status: Chronic (8) Osteoarthritis Onset Date: 11/25/14 Current Visit: No Status: Chronic Qualifiers: Osteoarthritis location: unspecified site Osteoarthritis type: unspecified Qualified Code(s): M19.90 - Unspecified osteoarthritis, unspecified site (9) Osteoporosis Current Visit: No Status: Chronic Qualifiers: Osteoporosis type: unspecified Presence of current pathological fracture: unspecified Qualified Code(s): M81.0 - Age-related osteoporosis without current pathological fracture - Plan on telemetry repeat EKG in the AM cardiology consulted fall precautions reconcile and continue home medications Discharge Plan: [facility] Plan to discharge in: 24 Hours - Advance Directives Does patient have a Living Will: Yes Does patient have a Durable POA for Healthcare: Yes - Code Status/Comfort Care Code Status Assessed: Yes (full code ) Critical Care: No Time Spent Managing Pts Care (In Minutes): 70 <Russ Cummins - Last Filed: 06/19/20 05:06> Discharge Plan: [facility] (Transfer to [facility]) Plan to discharge in: 24 Hours - Code Status/Comfort Care Code Status Assessed: Yes Code Status: Full Code <Shannan Albarado - Last Filed: 06/20/20 12:13> Date of Service: 06/19/20 Patient was treated in hospital for low heart rate. Adjusted amiodarone dosing. At this time, patient is stable for discharge home in a.m. if heart rate continues to remain stable <Shannan Albarado - Last Filed: 06/20/20 12:13>
[2020-06-19] MEDS ORDERED: ONDANSETRON 4 MG/2 ML VIAL IV PRN (09:34)
[2020-06-19] MEDS ORDERED: ACETAMINOPHEN 500 MG TAB PO PRN (09:34)
--- NOTE | 2020-06-19 10:47 | EKG ---
Test Date: 2020-06-19 Test Time: 00:06:19 Dot Etcher Apprentice: DONNIE MEASUREMENT RESULTS: Intervals: Rate: 49 IL: 204 QRSD: 102 QT: 496 QTc: 448 [place]: P: 59 [place]: 204 QRS: 3 T: 64 INTERPRETIVE STATEMENTS: Sinus bradycardia Incomplete right bundle branch block Anteroseptal infarct, age undetermined Abnormal ECG Compared to ECG 04/24/2020 16:11:28 Incomplete right bundle-branch block now present Sinus rhythm no longer present Left-axis deviation no longer present Myocardial infarct finding still present Electronically Signed On 06-19-20 10:46:35 CDT by Satya Thompson
[2020-06-19 11:24] VITALS: BMI 25.7
[2020-06-19] MEDS: AMIODARONE HCL 200 MG TAB PO SCH (16:38)
[2020-06-19] MEDS ORDERED: lisinopriL 10 MG TAB PO SCH (18:00)
[2020-06-19] MEDS ORDERED: Magnesium Oxide [Magnesium] 250 MG Tablet PO SCH (18:00)
[2020-06-19] MEDS ORDERED: SERTRALINE HCL 50 MG TAB PO SCH (18:00)
[2020-06-19] MEDS ORDERED: CALCIUM CARBONATE 500 MG TAB PO SCH (18:00)
[2020-06-19] MEDS ORDERED: DONEPEZIL HCL 5 MG TAB PO SCH (18:00)
[2020-06-19] MEDS ORDERED: ATORVASTATIN 10 MG TAB PO SCH (21:00)
[2020-06-20 06:14] LABS: Absolute Lymphocytes (CBC) 1.8 K/uL (0.7-4.9); MPV 9.4 fL (7.6-11.3); RBC Red Blood Cell Count 4.59 M/uL (3.86-4.86)
[2020-06-20 06:32] LABS: Albumin 3.6 g/dL (3.4-5.0); Bilirubin Total 0.5 mg/dL (0.2-1.0); Phosphorus 2.6 mg/dL (2.5-4.9); Potassium 3.9 mmol/L (3.5-5.1); Protein, Total 6.5 g/dL (6.4-8.2)
--- NOTE | 2020-06-20 08:11 | RAD REPORT ---
EXAM DESCRIPTION: RAD - Knee Right 3 View - 06/19/2020 2:40 am CLINICAL HISTORY: The patient is 89 years old and is Female; PAIN TECHNIQUE: Three views of the right knee. COMPARISON: No relevant prior studies available. FINDINGS: Bones/joints: There may be a small suprapatellar joint effusion. Knee arthroplasty. No acute fracture. No dislocation. Soft tissues: Unremarkable. Vasculature: Vascular calcifications. IMPRESSION: 1. No acute fracture or dislocation. 2. There may be a small suprapatellar joint effusion. Electronically signed by: Oh Valerio MD 06/19/2020 2:59 AM CDT Due to temporary technical issues with the PACS/Fluency reporting system, reports are being signed by the in house radiologists without review as a courtesy to insure prompt reporting. The interpreting radiologist is fully responsible for the content of the report.
--- NOTE | 2020-06-20 08:37 | RAD REPORT ---
EXAM DESCRIPTION: CT - Head Brain Wo Cont - 06/19/2020 6:18 am CLINICAL HISTORY: The patient is 89 years old and is Female; DIZZINESS TECHNIQUE: Axial computed tomography images of the head/brain without intravenous contrast. Sagitt al and coronal reformatted images were created and reviewed. This CT exam was performed using one o r more of the following dose reduction techniques: automated exposure control, adjustment of the mA and/or kV according to patient size, and/or use of iterative reconstruction technique. COMPARISON: No relevant prior studies available. FINDINGS: Brain: Mild cerebral atrophy. Mild nonspecific white matter changes likely related to chronic microvascular ischemic diseas e. No hemorrhage. Ventricles: No ventriculomegaly. Bones/joints: Unremarkable. No acute fracture. Soft tissues: Unremarkable. Sinuses: Unremarkable as visualized. Mastoid air cells: Unremarkable as visualized. No mastoid effusion. IMPRESSION: No acute intracranial abnormality. Electronically signed by: Oh Valeroi MD 06/19/2020 1:55 AM CDT Due to temporary technical issues with the PACS/Fluency reporting system, reports are being signed by the in house radiologists without review as a courtesy to insure prompt reporting. The interpreting radiologist is fully responsible for the content of the report.
--- NOTE | 2020-06-20 08:47 | RAD REPORT ---
EXAM DESCRIPTION: Crist[facility] Single View06/19/2020 2:39 am CLINICAL HISTORY: Dizziness TECHNIQUE: Single frontal view of the chest is submitted. COMPARISON: None available for comparison FINDINGS: Lungs: Somewhat rounded right middle and lower lobe opacification. Pleura: No appreciable effusion. No pneumothorax. Heart: The cardiothoracic silhouette is within normal limits. Mediastinum: Unremarkable Bones: Multilevel spondylosis. No acute fracture. Upper abdomen: Elevation of the right hemidiaphragm. IMPRESSION: Somewhat rounded right middle and lower lobe opacification. Possible mucous plugging wit h collapse versus infiltrate. Follow-up is recommended in order to exclude underlying mass/malignancy . Electronically signed by: Riana Marlow MD 06/19/2020 2:50 AM CDT Due to temporary technical issues with the PACS/Fluency reporting system, reports are being signed by the in house radiologists without review as a courtesy to insure prompt reporting. The interpreting radiologist is fully responsible for the content of the report.
[2020-06-20] MEDS ORDERED: AMLODIPINE 5 MG TAB PO SCH (09:00)
[2020-06-20] MEDS ORDERED: POTASSIUM CL SA 10 MEQ TAB PO ONE (09:00)
[2020-06-20] MEDS ORDERED: ASPIRIN 81 MG CHEWABLE TABLET PO SCH (09:00)
[2020-06-20] MEDS: AMIODARONE HCL 200 MG TAB PO SCH ×2 (09:00→13:23)
[2020-06-20] MEDS ORDERED: HOME MED 1 EA UNK (Simvastatin [Simvastatin] 20 MG Tablet) PO SCH (09:00)
[2020-06-20 12:05] VITALS: BP 134/62; TEMP 98.5
--- NOTE | 2020-06-20 12:17 | P.DS ---
Discharge Date: 06/20/20 Primary Care Provider: Marko Disposition: ROUTINE DISCHARGE Discharge Condition: GOOD Reason for Admission: bradycardia Consultations: Cardiology Brief History of Present Illness: Ms. Villatoro is an 89 yo F with HLD, HTN, osteoporosis, dementia, and anxiety here today after feelings of dizziness. She says she did not pass out. Denies nausea and vomiting. She says this happens rarely. She told her daughter that she passed out so the daughter her today, now patient denies this. EKG shows bradycardia to 49bpm. Hospital Course: Patient has done well during hospital stay. Spoke with Cardiology and they want to continue amiodarone dosing. At this time patient will continue with 200 daily. Patient is stable for discharge with outpatient follow-up. Vital Signs/Physical Exam: Temp Pulse Resp BP Pulse Ox 98.5 F 50 16 134/62 95 06/20/20 12:00 06/20/20 12:00 06/20/20 12:00 06/20/20 12:00 06/20/20 12:00 General: Alert, In no apparent distress, Oriented x3 Laboratory Data at Discharge: WBC 6.10 K/uL (4.3-10.9) 06/20/20 05:40 Hgb 13.1 g/dL (12.0-15.0) 06/20/20 05:40 Hct 40.0 % (36.0-45.0) 06/20/20 05:40 Plt Count 202 K/uL (152-406) 06/20/20 05:40 PT 11.2 SECONDS (9.5-12.5) 06/18/20 23:44 INR 0.97 06/18/20 23:44 Sodium 143 mmol/L (136-145) 06/20/20 05:40 Potassium 3.9 mmol/L (3.5-5.1) 06/20/20 05:40 BUN 20 mg/dL (7-18) H 06/20/20 05:40 Creatinine 1.18 mg/dL (0.55-1.3) 06/20/20 05:40 Glucose 93 mg/dL (74-106) 06/20/20 05:40 Phosphorus 2.6 mg/dL (2.5-4.9) 06/20/20 05:40 Magnesium 2.0 mg/dL (1.8-2.4) 06/20/20 05:40 Total Bilirubin 0.5 mg/dL (0.2-1.0) 06/20/20 05:40 AST 15 U/L (15-37) 06/20/20 05:40 ALT 18 U/L (12-78) 06/20/20 05:40 Alkaline Phosphatase 56 U/L (45-117) 06/20/20 05:40 Home Medications: Alendronate [Fosamax*] 1 tab PO SEECOM 04/24/20 Aspirin 1 tab PO DAILY 04/24/20 Calcium Carbonate [Calcium] 600 mg PO DAILY 6PM 04/24/20 Donepezil [Aricept*] 10 mg PO DAILY 6PM 04/24/20 Lisinopril [Zestril] 1 tab PO DAILY 6PM 04/24/20 Magnesium Oxide [Magnesium] 1 tab PO DAILY 6PM 04/24/20 Sertraline [Zoloft*] 25 mg PO DAILY 6PM 04/24/20 Simvastatin 1 tab PO DAILY 04/24/20 Amiodarone HCl [Cordarone*] 200 mg PO DAILY #30 tab 04/27/20 Physician Discharge Instructions: OK TO DC IV AND DC HOME FOLLOW-UP WITH PRIMARY CARE PROVIDER IN 1-2 WEEKS FOLLOW-UP WITH CARDIOLOGY IN 1-2 WEEKS RETURN TO THE ER IF symptoms worsen CALL or TEXT DR. BRANHAM AT [phone] IF ANY QUESTIONS REGARDING HOSPITAL STAY. PLEASE CALL THE FLOOR AT [phone] IF ANY MEDICATION OR NURSING QUESTIONS. Diet: AHA Activity: Fall precautions Followup: Romero Zhu MD [Primary Care Provider] - Time spent managing pt's care (in minutes): 35
[2020-06-20 12:26] VITALS: O2SAT 95
[2020-06-20 13:04] LABS: Urine Appearance CLOUDY (Clear); Urine Bilirubin NEGATIVE (Negataive); Urine Blood NEGATIVE (Negative); Urine Color YELLOW (Yellow); Urine Glucose NEGATIVE (Negative); Urine Protein TRACE (Negative)
[2020-06-20 13:07] LABS: Urine Microscopic Reflex ORDER UMIC
[2020-06-20 13:16] LABS: Urine Bacteria >50 /HPF (<20); Urine RBC NONE SEEN /HPF (NONE SEEN)
--- NOTE | 2020-06-20 19:37 | CON ---
Date of Consultation: 06/19/2020 Reason For Consultation: Bradycardia. History Of Present Illness: Ms. Villatoro is an 89-year-old woman, who was admitted on 06/19/2020 with generalized weakness. She has a history of hypertension. She has a history of high cholesterol. Sh temo has a history of atrial fibrillation, for which she takes amiodarone 200 mg daily. She has a histo ry of depression, for which she takes Zoloft. She has osteoporosis, for which she takes Fosamax. De nied any chest pain, nausea, vomiting, diaphoresis, PND, orthopnea, pedal edema, palpitations, or syn cope. Allergies: SHE IS ALLERGIC TO PENICILLIN AND MORPHINE. Review of Systems: Negative. Social History: Negative. Family History: Negative. Medications: Listed earlier, but she takes Fosamax, amiodarone, calcium, Aricept, Desyrel, magnesium , Zoloft, and atorvastatin. Physical Examination: Vital Signs: Her heart rate was 50, her blood pressure 170/77, she was afebrile with respiratory rat e of 16, sinus bradycardia, O2 saturation 94% on room air. General: No acute distress. HEENT: Negative. Neck: Supple without any bruit, lymphadenopathy, JVD, or thyromegaly. Chest: Clear to auscultation and percussion. Cardiac: Regular rhythm and rate without any murmurs, gallops, or rubs. Abdomen: Benign. Extremities: No clubbing, cyanosis, or edema. Diagnostic Data: Fairly unremarkable. Chest x-ray showed possible mucus plugging with collapse. He r EKG shows sinus bradycardia with an incomplete right bundle-branch block. She had a head CT showed no acute intracranial abnormality. Impression And Plan: Sinus bradycardia, expected on amiodarone. No hemodynamic compromise. This ma y have some to do with her weakness, but she does need the amiodarone, continue that for now. Her ot her problems including depression, osteoporosis, dyslipidemia, and hypertension are very well control led. I have no reason to change her medicine at this point. I would like her to go home whenever it is okay with Dr. Albarado. I will see her in the office in the near future. ERLINDA/MODL Voice ID: [id number] Report ID: [id number]
[2020-06-22] MEDS ORDERED: ALENDRONATE 10 MG TAB PO SCH (09:00)
== END 2020-06-20 14:30 | disposition home or self-care (01) ==
LOC: ER 21:38 → ERHOLD 06-19 05:03 → 2ND 06-19 08:38
PROVIDERS: ADMIT Hospitalist; ATTEND Hospitalist
DX: R00.1 Bradycardia, unspecified (principal); I10 Essential (primary) hypertension; E78.5 Hyperlipidemia, unspecified; M81.0 Age-related osteoporosis without current pathological fracture; F03.90 Unspecified dementia, unspecified severity, without behavioral disturbance, psychotic disturbance, mood disturbance, and anxiety; F41.9 Anxiety disorder, unspecified; I45.10 Unspecified right bundle-branch block; N31.9 Neuromuscular dysfunction of bladder, unspecified; K58.9 Irritable bowel syndrome, unspecified; I48.91 Unspecified atrial fibrillation; M19.90 Unspecified osteoarthritis, unspecified site; I25.10 Atherosclerotic heart disease of native coronary artery without angina pectoris; N81.6 Rectocele; Z95.5 Presence of coronary angioplasty implant and graft; Z87.891 Personal history of nicotine dependence; Z90.721 Acquired absence of ovaries, unilateral; Z90.710 Acquired absence of both cervix and uterus; Z96.659 Presence of unspecified artificial knee joint; Z88.0 Allergy status to penicillin; Z88.6 Allergy status to analgesic agent; Z20.822 Contact with and (suspected) exposure to COVID-19; Z83.3 Family history of diabetes mellitus; Z82.49 Family history of ischemic heart disease and other diseases of the circulatory system; Z82.3 Family history of stroke
CPT/HCPCS: 93005; 87088; 85025 ×2; 87086; 80048; 36415 ×2; 83735 ×2; 84100; 85610; 80076; 84484; 80053; 83880; 70450; 71045; 73562; 94760 ×2; 99285; U0003; 81003; 81015; 87077; 87186; G0378